=== PATIENT | male | born 1955 | race Caucasian/White ===

== ENCOUNTER → 2016-09-09 | Day surgery (SDC) | payer MEDICARE ==
--- NOTE | 2016-09-02 16:00 | HP ---
HISTORY AND PHYSICAL: DATE OF ADMISSION: 09/09/16 ADMITTING DIAGNOSES: 1. Hematuria. 2. Probable bladder tumors. PLANNED PROCEDURE: Transurethral resection of bladder tumors and possible right stent insertion. SURGEON: Dr. Goins. ADMITTING HISTORY AND PHYSICAL: Wesly Aparicio is a 60-year-old chronic smoker, who was evaluated recently for hematuria. Cystoscopy revealed a moderately enlarged prostate. There was a diverticulum noted in the bladder above the area of the right orifice with inside the diverticulum what appeared to be two superficial- appearing papillary tumors. CT scan done previously with intravenous contrast had revealed normal kidneys and he is now being brought in for transurethral resection of the bladder tumors and possible right stent insertion because of the proximity of the diverticulum to intramural portion of the right ureter. PAST MEDICAL HISTORY: Significant for: 1. Hypertension. 2. High cholesterol. 3. Depression. PAST SURGICAL HISTORY: Significant for L5-S1 hemilaminotomy done in March of 2015, bilateral total knee replacement, and left arm surgery. MEDICATIONS: On admission, include: 1. Neurontin 1800 mg a day. 2. Seroquel 400 mg a day. 3. Trazodone 200 mg a day. 4. Norvasc 10 mg a day. 5. Cozaar 25 mg a day. 6. Prilosec 40 mg a day. 7. Lipitor 60 mg a day. 8. Wellbutrin 300 mg daily. ALLERGIES: No known drug allergies. SMOKING HISTORY: He has a [id number] smoking history and is still smoking. PHYSICAL EXAMINATION GENERAL: Reveals pleasant, healthy-appearing, middle-aged gentleman. VITAL SIGNS: Blood pressure is 122/82, pulse 57 per minute, oxygen saturation 98% on room air. LUNGS: Clear bilaterally. CARDIOVASCULAR: Regular rate and rhythm. S1, S2. ABDOMEN: Soft without masses. IMPRESSION: A 60-year-old smoker with what appeared to be superficial bladder tumors. PLAN: Planned procedure is transurethral resection of bladder tumors and possible right stent insertion. CC: Dr. Dukes; Dr. Goins* [id number]/[facility] #: [id number] MTDD
[~2016-09-09] MED LIST: Buffered Lidocaine 1% SYR 3ML* 3 ML/SYR SYRINGE INTRADERM ONE; Buffered Lidocaine 1% SYR 3ML* 3 ML/SYR SYRINGE ONE; DiMENhydriNATE IV* 50 MG/ML VIAL IV PUSH PRN; Furosemide IV* 10 MG/ML 2 ML VIAL (20 MG) ONE; Iohexol 180 (CONTRAST) 10 ML SDV IV ONE; Lidocaine 2% JELLY* 6 ML JELLY TOPICAL ONE; Lidocaine 2% MPF* 2 ML VIAL ONE; Propofol* 10 MG/ML 20 ML BTL IV PUSH ONE; cefTRIAXone(*) 2 GM ADDV.VIAL IVPB ONE; fentaNYL* 50 MCG/ML 2 ML VIAL (100 MCG VIAL) IV PRN; fentaNYL* 50 MCG/ML 2 ML VIAL (100 MCG VIAL) ONE
[2016-09-09 11:53] VITALS: BP 151/84
--- NOTE | 2016-09-09 12:56 | RAD ---
INDICATION: Bladder diverticulum. Stent placement COMPARISON: CT July 17, 2016 FINDINGS: 5 seconds of fluoroscopy were provided for the urology department. Fluoroscopic spot imaging of the abdomen were obtained for operative control and show placement of a right ureteral stent in expected position . CPT II Codes: 6045F (fluoro time doc)
--- NOTE | 2016-09-09 22:06 | OP ---
DATE OF OPERATION: 09/09/16 - [facility] DATE OF : [birth year] - 60 years, male SURGEON: Kulwinder Goins MD ANESTHESIOLOGIST: Dr. Angela. ANESTHESIA: General. PRE-OP DIAGNOSIS: Bladder tumors. POST-OP DIAGNOSIS: Bladder tumors. OPERATIVE PROCEDURE: 1. Cystoscopy, excision biopsy of bladder tumors. 2. Right retrograde and right stent insertion. COMPLICATIONS: None. STENT USED: 7-Filipino stent right ureter. OPERATIVE FINDINGS: 1. [id number] enlarged prostate. 2. Diverticulum, posterior bladder wall right side with 2 small superficial- appearing tumors inside the diverticulum. POSTOPERATIVE CONDITION: Stable. INDICATIONS: Wesly Aparicio is a 60-year-old smoker, who was evaluated in the office and noted to have the above described superficial appearing bladder tumors inside a bladder diverticulum. DESCRIPTION OF PROCEDURE: After induction of general anesthesia, the patient was placed in dorsal lithotomy position. Sequential compression devices were in place and functioning. Initial cystoscopy revealed mild strictures in the urethra, mild to moderately enlarged prostate. The bladder was carefully examined. The right and left ureteral orifices were normal in position and configuration. In the posterior bladder wall just above the right orifice was a diverticulum and initially I could not visualize anything inside the diverticulum on first visualization; however, with introducing the scope into the diverticulum itself , I could then visualize two small superficial-appearing papillary tumors in the lining of the diverticulum. The remainder of the bladder was unremarkable. Because of the possibility that the intramural portion of the right ureter would be in proximity to where these lesions are, I elected to proceed with a right stent insertion. Right retrograde pyelogram revealed mild fullness of the right collecting system with no filling defects noted. A 7-Filipino stent was introduced and positioned under fluoroscopy with good proximal and distal positioning obtained. Next, using a cup biopsy forceps, excision biopsies of the bladder lesions were successfully carried out and the specimen was sent for histopathology. An electrocautery Bugbee was introduced and the area where the lesions had been and the edges of the diverticulum were carefully cauterized. At the end of the procedure, there was no remaining lesion and there was no evidence of bladder perforation. Hemostasis appeared satisfactory. A 22-Filipino Amaya was placed for temporary bladder drainage. The patient tolerated the procedure satisfactorily and was transferred back to the recovery area in stable condition. CC: Dr. Rafa Dukes * [id number]/[facility] #: [id number] [facility]
== END | disposition home or self-care (01) ==
LOC: OR 07:53
PROVIDERS: ATTEND Urology
DX: D30.3 Benign neoplasm of bladder (principal); N32.3 Diverticulum of bladder; R31.9 Hematuria, unspecified; I10 Essential (primary) hypertension; F17.210 Nicotine dependence, cigarettes, uncomplicated
CPT/HCPCS: 74420; 88305; C1876; J0696; J1940; J2704; J3010

== ENCOUNTER → 2017-03-06 12:33 | Emergency (ER) | payer MEDICARE ==
[~2017-03-06 12:33] MED LIST changes: +ALTEPLASE IV ONE; +Alteplase* 100 MG VIAL ONE; -Buffered Lidocaine 1% SYR 3ML* 3 ML/SYR SYRINGE INTRADERM ONE; -Buffered Lidocaine 1% SYR 3ML* 3 ML/SYR SYRINGE ONE; -DiMENhydriNATE IV* 50 MG/ML VIAL IV PUSH PRN; -Furosemide IV* 10 MG/ML 2 ML VIAL (20 MG) ONE; +Iodixanol 320 (CONTRAST) 100 ML SDV IV ONE; -Iohexol 180 (CONTRAST) 10 ML SDV IV ONE; -Lidocaine 2% JELLY* 6 ML JELLY TOPICAL ONE; -Lidocaine 2% MPF* 2 ML VIAL ONE; +NS 0.9% 1000 ML* 500 ML IV ONE; -Propofol* 10 MG/ML 20 ML BTL IV PUSH ONE; -cefTRIAXone(*) 2 GM ADDV.VIAL IVPB ONE; -fentaNYL* 50 MCG/ML 2 ML VIAL (100 MCG VIAL) IV PRN; -fentaNYL* 50 MCG/ML 2 ML VIAL (100 MCG VIAL) ONE
--- NOTE | 2017-03-06 12:50 | RAD ---
HISTORY: Right facial droop, right-sided weakness COMPARISONS: None TECHNIQUE: Multiple contiguous axial CT scans were obtained of the head without intravenous contrast. FINDINGS: HEMORRHAGE/INFARCT: There is no hemorrhage or acute infarct. MASSES/SHIFT: There is no mass or shift. EXTRA-AXIAL SPACES: There are no extra-axial fluid collections. SULCI AND VENTRICLES: The sulci and ventricles are normal in size and position for the patient's stated age. CEREBRUM: There are no focal parenchymal abnormalities. BRAINSTEM: There are no focal parenchymal abnormalities. CEREBELLUM: There are no focal parenchymal abnormalities. VESSELS: There is focal high attenuation of the M1 segment of the left middle cerebral artery, new from the previous examination consistent with a dense left MCA sign PARANASAL SINUSES: The paranasal sinuses are clear. ORBITS: The orbits are unremarkable. BONES AND SOFT TISSUE: No bone or soft tissue abnormalities are noted. OTHER: None IMPRESSION: DENSE LEFT MCA SIGN, CONCERNING FOR A LEFT MCA THROMBUS GIVEN THE HISTORY OF RIGHT-SIDED WEAKNESS. PRELIMINARY FINDINGS WERE DISCUSSED WITH DR. BRUNO IN THE EMERGENCY DEPARTMENT AT APPROXIMATELY 12:46 PM ON MARCH 06, 2017.
[2017-03-06 12:54] LABS: Hematocrit 41 % (42-52); Hemoglobin 13.8 g/dl (14.0-18.0); Mean Corpuscular HGB Conc 34 g/dl (31-36); Mean Corpuscular Hemoglobin 33 pg (27-31); Mean Corpuscular Volume 99 fL (80-94); Mean Platelet Volume 8 um3 (7.4-10.4); Red Blood Count 4.13 10^6/ul (4.0-5.4); Red Cell Distribution Width 14 % (10.5-15); White Blood Count 4.8 10^3/ul (3.5-10.8)
[2017-03-06 13:09] LABS: Albumin 4.3 g/dL (3.2-5.2); BUN/Creatinine Ratio 16.4 (8-20); Calcium 9.5 mg/dL (8.6-10.3); EGFR African American 81.8 (>60); EGFR Non-African American 63.6 (>60); Globulin 2.4 g/dL (2-4); HDL Cholesterol 34.7 mg/dL; Potassium 3.7 mmol/L (3.5-5.0); Total Bilirubin 0.6 mg/dL (0.2-1.0); Total Protein 6.7 g/dL (6.4-8.9)
[2017-03-06 13:11] LABS: Troponin I 0.01 ng/mL (<0.04)
--- NOTE | 2017-03-06 14:16 | RAD ---
HISTORY: Right hemiplegia, dysarthria COMPARISONS: Head CT dated March 06, 2017 TECHNIQUE: Multiple contiguous axial CT scans were obtained of the head and neck After the administration of nonionic intravenous contrast timed to the systemic arterial phase of contrast enhancement. Coronal and sagittal multiplanar reformations are submitted for review. Multiple 3-D maximum intensity projection reconstructions are also submitted for review. FINDINGS: CTA NECK: AORTIC ARCH: There is a normal three-vessel branching pattern of the aortic arch. There is no ostial or proximal stenosis of the cephalic great vessels. RIGHT VERTEBRAL ARTERY: The right vertebral artery is patent along its course, without stenosis. LEFT VERTEBRAL ARTERY: There is atherosclerosis of the origin of the left vertebral artery, with moderate ostial stenosis. DOMINANCE: The vertebral arteries are codominant. RIGHT COMMON CAROTID ARTERY: The right common carotid artery is patent. The right carotid bifurcation occurs at C3-C4 RIGHT INTERNAL CAROTID ARTERY: There is atheromatous disease of the right carotid bifurcation, without right internal carotid artery stenosis by NASCET criteria. RIGHT EXTERNAL CAROTID ARTERY: The right external carotid artery is unremarkable. LEFT COMMON CAROTID ARTERY: The left common carotid artery is patent. The left carotid bifurcation occurs at C3-C4 LEFT INTERNAL CAROTID ARTERY: The left internal carotid artery is occluded beginning at the bifurcation. This extends through the cavernous segment. LEFT EXTERNAL CAROTID ARTERY: The left external carotid artery is unremarkable. VENOUS CIRCULATION: The venous system is unremarkable. SALIVARY GLANDS: The parotid glands, submandibular glands, sublingual glands are normal. NASAL CAVITY/NASOPHARYNX: The nasal cavity and nasopharynx are normal. ORAL CAVITY/OROPHARYNX: The oral cavity and oropharynx are unremarkable. LARYNGEAL APPARATUS/HYPOPHARYNX: The laryngeal apparatus and hypopharynx are normal. UPPER AIRWAY/UPPER ESOPHAGUS: The visualized upper airway and esophagus are normal. LUNG APICES: The lung apices are clear. THYROID GLAND: The thyroid gland is normal. LYMPH NODES: There is no lymphadenopathy by size criteria. BONES AND SOFT TISSUES: Degenerative changes are noted CTA HEAD: INTRACRANIAL CIRCULATION: As noted above, there is occlusion of left internal carotid artery through the cavernous segment. There is short segment occlusion of the distal M1 segment of the left MCA correspond to the area of density noted on CT. Elsewhere, there is no aneurysm, vascular malformation, occlusion, or stenosis of the visualized intracranial situation. The anterior communicating artery complex is clear. Bilateral posterior communicating arteries are identified. VENOUS CIRCULATION: The venous system is unremarkable. PERFUSION: There is no obvious parenchymal perfusion deficit. HEMORRHAGE/INFARCT: There is no hemorrhage or acute infarct. MASSES/SHIFT: There is no mass or shift. EXTRA-AXIAL SPACES: There are no extra-axial fluid collections. SULCI AND VENTRICLES: The sulci and ventricles are normal in size and position for the patient's stated age. CEREBRUM: There are no focal parenchymal abnormalities. BRAINSTEM: There are no focal parenchymal abnormalities. CEREBELLUM: There are no focal parenchymal abnormalities. PARANASAL SINUSES: The paranasal sinuses are clear. ORBITS: The orbits are unremarkable. BONES AND SOFT TISSUE: No bone or soft tissue abnormalities are noted. OTHER: There is no abnormal enhancement. IMPRESSION: 1. THERE IS SHORT SEGMENT OCCLUSION OF THE DISTAL M1 SEGMENT OF THE LEFT MIDDLE CEREBRAL ARTERY CORRESPONDING TO THE AREA OF DENSITY NOTED ON PREVIOUS CT. 2. 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 3. 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 4. THERE IS NO RIGHT INTERNAL CAROTID ARTERY STENOSIS BY NASCET CRITERIA. PRELIMINARY FINDINGS WERE DISCUSSED WITH DR. RUBIN AT APPROXIMATELY 2:15 PM ON MARCH 06, 2017.. CPT II Codes: 3100F
--- NOTE | 2017-03-06 14:38 | RAD ---
HISTORY: Worsening left-sided weakness and aphasia COMPARISONS: Head CT dated March 06, 2017 at 12:35 PM, CT dated March 06, 2017 at 1:41 PM TECHNIQUE: Multiple contiguous axial CT scans were obtained of the head after the administration intravenous contrast as part of a CTA performed earlier the same date. FINDINGS: HEMORRHAGE/INFARCT: There is no hemorrhage or acute infarct. The presence of contrast limits the sensitivity for subarachnoid hemorrhage. MASSES/SHIFT: There is no mass or shift. EXTRA-AXIAL SPACES: There are no extra-axial fluid collections. SULCI AND VENTRICLES: The sulci and ventricles are normal in size and position for the patient's stated age. CEREBRUM: There are no focal parenchymal abnormalities. BRAINSTEM: There are no focal parenchymal abnormalities. CEREBELLUM: There are no focal parenchymal abnormalities. VESSELS: The dense left MCA is not well visualized on this postcontrast examination. PARANASAL SINUSES: The paranasal sinuses are clear. ORBITS: The orbits are unremarkable. BONES AND SOFT TISSUE: No bone or soft tissue abnormalities are noted. OTHER: None IMPRESSION: NO ACUTE INTRACRANIAL PATHOLOGY. THE PRESENCE OF INTRAVENOUS CONTRAST LIMITS THE SENSITIVITY FOR SUBARACHNOID HEMORRHAGE AND OBSCURES THE DENSE LEFT MCA NOTED ON THE PREVIOUS CT EXAMINATION
--- NOTE | 2017-03-06 14:39 | RAD ---
HISTORY: Stroke COMPARISONS: October 13, 2015 VIEWS:1: Single frontal portable view of the chest at 1:55 PM FINDINGS: LINES AND TUBES: None. CARDIOMEDIASTINAL SILHOUETTE: The cardiomediastinal silhouette is normal for portable technique. PLEURA: The costophrenic angles are sharp. There is stable mild right apical pleural thickening. LUNG PARENCHYMA: The lungs are clear. ABDOMEN: The upper abdomen is clear. There is no subphrenic gas. BONES AND SOFT TISSUES: No bone or soft tissue abnormalities are noted. IMPRESSION: NO ACTIVE CARDIOPULMONARY DISEASE.
--- NOTE | 2017-03-06 15:05 | ED ---
Iván Davila Thomas, scribed for Cliff Mitchell MD on 03/06/17 at 1239 . Neurological HPI - HPI Summary HPI Summary: Pt is a 61 y/o M BIBA. Pt was immediately sent to CT, where he was seen initially. Time of onset was about 11:50 when he was driving in the car around [employer]. His noticed slurred speech. Pt is "stumbling a little bit" when speaking, has R-sided facial droop, and unequal erp implementation consultant strengths. Denies tingling , numbness, DENISE. PMHx: HTN, HLD, ulcers. PSHx: bladder tumor (benign) excision 6 months ago. No documented PMHx of aneurysms. SHx: heavy alcohol use for the last 2 years. Ghassan Flanagan was called SHEARER SCREEN MEASURER AND TRIMMER at 12:23. The patient was aware of his name, the date, and where he was. The pt is talking about his brother as if he is still alive. Per his family, there is no chance he is intoxicated. - History of Current Complaint Stated Complaint: POSSIBLE GHASSAN LANGFORD Hx Obtained From: Patient, EMS Onset/Duration: Sudden Onset, Started hours ago - 1 hour, Still Present Character: Impaired Speech - slurred, Other: - POS: "stumbling a little bit when speaking", R-sided facial droop, unequal erp implementation consultant strengths. NEG: parasthesias. - Additional Pertinent History Primary Care Physician: [id number] - Allergy/Home Medications Allergies/Adverse Reactions: Allergies Allergy/AdvReac Type Severity Reaction Status Date / Time No Known Drug Allergy Allergy See Comment Verified 09/09/16 08:40 STEROID AdvReac RAN TO Uncoded 09/09/16 08:40 BAR, DRINKING ALCOHOL PMH/Surg Hx/FS Hx/Imm Hx Previously Healthy: No Endocrine/Hematology History: Denies: Hx Anticoagulant Therapy, Hx Diabetes, Hx Thyroid Disease Cardiovascular History: Reports: Hx Coronary Artery Disease - CHOLESTEROL CONTROL WITH MEDS, Hx Hypertension - ON MEDICATION, Other Cardiovascular Problems/Disorders - CHOLESTEROL CONTROL WITH MEDICATIONS Denies: Hx Pacemaker/ICD, Hx Peripheral Vascular Disease Respiratory History: Reports: Hx Pneumonia - 20+ years ago, Other Respiratory Problems/Disorders - HX OF COLLAPSE RT LUNG DUE TO RUPTURED CYST 1979/WITH LOBECTOMY Denies: Hx Asthma, Hx Chronic Obstructive Pulmonary Disease (COPD) GI History: Reports: Hx Gastroesophageal Reflux Disease, Hx Ulcer - Hx OF GASTRIC ULCER, BLEEDING History: Denies: Hx Dialysis, Hx Renal Disease Musculoskeletal History: Reports: Hx Arthritis, Hx Bursitis, Other Musculoskeletal History - HX LEFT KNEE REPLACEMENT , LT ULNAR NERVE REPAIR. DEFORMITY TO LT HAND Sensory History: Reports: Hx Cataracts, Hx Contacts or Glasses Denies: Hx Hearing Aid Opthamlomology History: Reports: Hx Cataracts, Hx Contacts or Glasses Neurological History: Reports: Hx Nerve Disease - LEFT HAND, Other Neuro Impairments/Disorders - OVER DOSE IS IN COMA Denies: Hx Dementia, Hx Headaches, Hx Seizures Psychiatric History: Reports: Hx Anxiety - on meds, Hx Depression, Hx Community Mental Health Tx, Hx Suicide Attempt - [facility] ABOUT 10 YEARS AGO. CURRENT W SEREQUEL AND NORVASC, Hx Substance Abuse, Other Psychiatric Issues/Disorders - HAS HAD FAMILY MEMBERS AND ANNERVERSARY DATES/AGE CLOSE TO THIS ATTEMPT Denies: Hx Panic Disorder, Hx of Violent Episodes Against Others - Surgical History Surgery Procedure, Year, and Place: 2009 BILATERAL INGUINAL HERNIA REPAIR, [id number] LEFT KNEE REPLACEMENT, [id number] RIGHT UPPER LUNG () LOBECTOMY, [id number] LEFT DETACHED RETINA REPAIR { no metal -report in pt's chart}, [id number] [place]AR[place] [facility] [place] DR DE JESUS [place]. [place] [facility] [place]EE [place]PLAC[place] -2013. diskectomy on lower back 04/2015 Hx Anesthesia Reactions: No - Immunization History Date of Tetanus Vaccine: UNKNOWN Date of Influenza Vaccine: this year Infectious Disease History: Denies: Hx Clostridium Difficile, Hx Hepatitis, Hx Human Immunodeficiency Virus (HIV) - Family History Known Family History: Positive: Other - POS: alcoholism, mental health, drug use - Social History Alcohol Amount: RECOVERING ALCOHOLIC Substance Use Type: Reports: None Smoking Status (MU): Heavy Every Day Tobacco Smoker Type: Cigarettes Amount Used/How Often: 1 PPD Length of Time of Smoking/Using Tobacco: 30 YEARS Have You Smoked in the Last Year: Yes Review of Systems Constitutional: Negative Negative: Fever, Chills Eyes: Negative Negative: Erythema - eye ENT: Negative Negative: Sore Throat Cardiovascular: Negative Negative: Chest Pain Respiratory: Negative Negative: Shortness Of Breath, Cough Gastrointestinal: Negative Negative: Abdominal Pain, Vomiting, Nausea Genitourinary: Negative Negative: dysuria, hematuria Musculoskeletal: Negative Negative: Myalgia, Edema - leg Skin: Negative Negative: Rash Neurological: Other - POS: R-sided facial droop, unequal erp implementation consultant strengths ( resolved in the ED), aphasia (resolved in the ED);NEG: dizziness Positive: Slurred Speech - onset 11:50. Negative: Headache, Paresthesia Psychological: Normal All Other Systems Reviewed And Are Negative: Yes Physical Exam - Summary Physical Exam Summary: Constitutional: Well-developed, Well-nourished, Alert. (-) Distressed Skin: Warm, Dry HENT: Eyes: Conjunctiva normal Neck: Musculoskeletal ROM normal neck. (-) JVD, (-) Stridor, (-) Tracheal deviation Cardio: Rhythm regular, rate normal, Heart sounds normal; Intact distal pulses; The pedal pulses are 2+ and symmetric. Radial pulses are 2+ and symmetric. (-) Murmur Pulmonary/Chest wall: Effort normal. (-) Respiratory distress, (-) Wheezes, (-) Rales Abd: Soft. (-) Tenderness, ~(-) Distension, (-) Guarding, (-) Rebound Musculoskeletal: (-) Edema Lymph: (-) Cervical adenopathy Neuro: Alert, Oriented x3, Unequal erp implementation consultant strengths (weak on right, weaker than baseline). Slurred speech. Cranial nerves intact with exception of R facial droop (-) Dysmetria, (-) Nystagmus, (-) Ataxia by finger to nose testing, (-) Sensory deficit. Psych: Mood and affect Normal Triage Information Reviewed: Yes Vital Signs On Initial Exam: Initial Vitals BP 150/82 03/06/17 12:46 Vital Signs Reviewed: Yes Diagnostics - Vital Signs Vital Signs Pulse Resp BP Pulse Ox 03/06/17 14:30 145/79 03/06/17 14:24 60 12 91 03/06/17 14:15 61 12 147/81 91 03/06/17 14:00 58 14 158/83 95 03/06/17 13:52 145/99 03/06/17 13:37 58 17 94 03/06/17 13:34 132/79 03/06/17 13:30 58 17 134/86 94 03/06/17 13:14 65 12 150/78 95 03/06/17 13:00 61 18 135/78 93 03/06/17 12:47 63 15 93 03/06/17 12:46 150/82 - Laboratory Lab Results: Lab Results 03/06/17 03/06/17 03/06/17 Range/Units 12:45 12:45 12:45 WBC 4.8 (3.5-10.8) 10^3/ul RBC 4.13 (4.0-5.4) 10^6/ul Hgb 13.8 L (14.0-18.0) g/dl Hct 41 L (42-52) % MCV 99 H (80-94) fL MCH 33 H (27-31) pg MCHC 34 (31-36) g/dl RDW 14 (10.5-15) % Plt Count 187 (150-450) 10^3/ul MPV 8 (7.4-10.4) um3 Neut % (Auto) 59.8 (38-83) % Lymph % (Auto) 31.5 (25-47) % [place] % (Auto) 6.4 (1-9) % Eos % (Auto) 1.6 (0-6) % Baso % (Auto) 0.7 (0-2) % Absolute Neuts (auto) 2.8 (1.5-7.7) 10^3/ul Absolute Lymphs (auto) 1.5 (1.0-4.8) 10^3/ul Absolute Monos (auto) 0.3 (0-0.8) 10^3/ul Absolute Eos (auto) 0.1 (0-0.6) 10^3/ul Absolute Basos (auto) 0 (0-0.2) 10^3/ul Absolute Nucleated RBC 0 10^3/ul Nucleated RBC % 0.1 INR (Anticoag Therapy) 0.88 L (0.89-1.11) APTT 29.8 (26.0-36.3) seconds Sodium 138 (133-145) mmol/L Potassium 3.7 (3.5-5.0) mmol/L Chloride 106 (101-111) mmol/L Carbon Dioxide 25 (22-32) mmol/L Anion Gap 7 (2-11) mmol/L BUN 19 (6-24) mg/dL Creatinine 1.16 (0.67-1.17) mg/dL Est GFR ( Amer) 81.8 (>60) Est GFR (Non-Af Amer) 63.6 (>60) BUN/Creatinine Ratio 16.4 (8-20) Glucose 88 (70-100) mg/dL Lactic Acid (0.5-2.0) mmol/L Calcium 9.5 (8.6-10.3) mg/dL Total Bilirubin 0.60 (0.2-1.0) mg/dL AST 26 (13-39) U/L ALT 31 (7-52) U/L Alkaline Phosphatase 98 (34-104) U/L Troponin I 0.01 (<0.04) ng/mL Total Protein 6.7 (6.4-8.9) g/dL Albumin 4.3 (3.2-5.2) g/dL Globulin 2.4 (2-4) g/dL Albumin/Globulin Ratio 1.8 (1-3) Triglycerides 241 mg/dL Cholesterol 181 mg/dL LDL Cholesterol 98 mg/dL HDL Cholesterol 34.7 mg/dL Blood Type Antibody Screen 03/06/17 03/06/17 Range/Units 12:45 12:45 WBC (3.5-10.8) 10^3/ul RBC (4.0-5.4) 10^6/ul Hgb (14.0-18.0) g/dl Hct (42-52) % MCV (80-94) fL MCH (27-31) pg MCHC (31-36) g/dl RDW (10.5-15) % Plt Count (150-450) 10^3/ul MPV (7.4-10.4) um3 Neut % (Auto) (38-83) % Lymph % (Auto) (25-47) % [place] % (Auto) (1-9) % Eos % (Auto) (0-6) % Baso % (Auto) (0-2) % Absolute Neuts (auto) (1.5-7.7) 10^3/ul Absolute Lymphs (auto) (1.0-4.8) 10^3/ul Absolute Monos (auto) (0-0.8) 10^3/ul Absolute Eos (auto) (0-0.6) 10^3/ul Absolute Basos (auto) (0-0.2) 10^3/ul Absolute Nucleated RBC 10^3/ul Nucleated RBC % INR (Anticoag Therapy) (0.89-1.11) APTT (26.0-36.3) seconds Sodium (133-145) mmol/L Potassium (3.5-5.0) mmol/L Chloride (101-111) mmol/L Carbon Dioxide (22-32) mmol/L Anion Gap (2-11) mmol/L BUN (6-24) mg/dL Creatinine (0.67-1.17) mg/dL Est GFR ( Amer) (>60) Est GFR (Non-Af Amer) (>60) BUN/Creatinine Ratio (8-20) Glucose (70-100) mg/dL Lactic Acid 1.2 (0.5-2.0) mmol/L Calcium (8.6-10.3) mg/dL Total Bilirubin (0.2-1.0) mg/dL AST (13-39) U/L ALT (7-52) U/L Alkaline Phosphatase (34-104) U/L Troponin I (<0.04) ng/mL Total Protein (6.4-8.9) g/dL Albumin (3.2-5.2) g/dL Globulin (2-4) g/dL Albumin/Globulin Ratio (1-3) Triglycerides mg/dL Cholesterol mg/dL LDL Cholesterol mg/dL HDL Cholesterol mg/dL Blood Type O Positive Antibody Screen Negative Result Diagrams: 03/06/17 12:45 03/06/17 12:45 Lab Statement: Any lab studies that have been ordered have been reviewed, and results considered in the medical decision making process. - Radiology CXR Xray Interpretation: No Acute Changes - No active cardiopulmonary disease Radiology Interpretation Completed By: Radiologist - CT CTA Head CT Interpretation: Positive (See Comments) - 1. THERE IS SHORT SEGMENT OCCLUSION OF THE DISTAL M1 SEGMENT OF THE LEFT MIDDLE CEREBRAL ARTERY CORRESPONDING TO THE AREA OF DENSITY NOTED ON PREVIOUS CT. 2. 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 3. 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 4. THERE IS NO RIGHT INTERNAL CAROTID ARTERY STENOSIS BY NASCET CRITERIA. CT Interpretation Completed By: Radiologist CT Brain 12:30 CT Interpretation: Positive (See Comments) - DENSE LEFT MCA SIGN, CONCERNING FOR A LEFT MCA THROMBUS GIVEN THE HISTORY OF RIGHT-SIDED WEAKNESS. PRELIMINARY FINDINGS WERE DISCUSSED WITH DR. MITCHELL IN THE EMERGENCY DEPARTMENT CT Interpretation Completed By: Radiologist CT Brain 14:20 CT Interpretation: No Acute Changes - RADIOLOGIST INTERPRETATION: NO ACUTE INTRACRANIAL PATHOLOGY. THE PRESENCE OF INTRAVENOUS CONTRAST LIMITS THE SENSITIVITY FOR SUBARACHNOID HEMORRHAGE AND OBSCURES THE DENSE LEFT MCA NOTED ON THE PREVIOUS CT EXAMINATION, Positive (See Comments) - ED PHYSICIAN INTERPRETATION: A wet read of this CT indicates subarachnoid hemorrhage. CT Interpretation Completed By: ED Physician, Radiologist - EKG 13:27 Cardiac Rate: Bradycardia - 58 BPM EKG Interpretation: Sinus bradycardia. No STEMI. 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 Non-Paretic Hand: Both Correctly Best Gaze (Only Horizontal Eye Movement): Normal Visual Field Testing: No Visual Loss Facial Paresis-Pt to Smile & Close Eyes or Grimace Symmetry: Minor Paralysis Motor Function - Right Arm: No Drift-Holds 10 Seconds Motor Function - Left Arm: No Drift-Holds 10 Seconds Motor Function - Right Leg: No Drift-Holds 10 Seconds Motor Function - Left Leg: No Drift-Holds 10 Seconds Limb Ataxia-Must be out of Proportion to Weakness Present: Absent Sensory (Use Pinprick to Test Arms/Legs/Trunk/Face): Normal Best Language (Describe Picture, Name Items): Some Loss Dysarthria (Read Several Words): Slurs Some Words Extinction and Inattention: No Abnormality Total Score: 3 Re-Evaluation - Re-Evaluation First Eval Re-Evaluation Time: 13:05 Change: Improved Comment: New information was obtained. The pt pulled the car over because he could not move his R arm, which has since improved. His gameplay engineer are now equal. There is still facial droop on the R side and dysarthric speech. The aphasia has resolved. Dr. Zamudio is at the bedside. Second Eval Re-Evaluation Time: 14:21 Change: Worse - There has been an acute change. The pt now is hemiplegic to the R side and is speech is more slurred. Third Eval Re-Evaluation Time: 14:50 Change: Improved - Now moving upper extremities better. Fourth Eval Re-Evaluation Time: 14:57 Change: Improved - Some hemineglect on the R side, now resolved. Gag reflex is delayed but present. Awake and asking question. Course/Dx - Course Assessment/Plan: Pt is a 61 y/o M BIBA. Pt was immediately sent to CT, where he was seen initially. Time of onset was about 11:50 when he was driving in the car around [address]. His noticed slurred speech. Pt is "stumbling a little bit" when speaking, has R-sided facial droop, and unequal erp implementation consultant strengths. Denies tingling, numbness, DENISE. PMHx: HTN, HLD, ulcers. PSHx: bladder tumor ( benign) excision 6 months ago. No documented PMHx of aneurysms. SHx: heavy alcohol use for the last 2 years. Ghassan Flanagan was called SHEARER SCREEN MEASURER AND TRIMMER at 12:23. The patient was aware of his name, the date, and where he was. The pt is talking about his brother as if he is still alive. Per his family, there is no chance he is intoxicated. CXR revealed no active cardiopulmonary disease. A CTA Head revealed 1. THERE IS SHORT SEGMENT OCCLUSION OF THE DISTAL M1 SEGMENT OF THE LEFT MIDDLE CEREBRAL ARTERY CORRESPONDING TO THE AREA OF DENSITY NOTED ON PREVIOUS CT. 2. 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 3. 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 4. THERE IS NO RIGHT INTERNAL CAROTID ARTERY STENOSIS BY NASCET CRITERIA. CT Brain 12:30 revealed DENSE LEFT MCA SIGN, CONCERNING FOR A LEFT MCA THROMBUS GIVEN THE HISTORY OF RIGHT-SIDED WEAKNESS. PRELIMINARY FINDINGS WERE DISCUSSED WITH DR. MITCHELL IN THE EMERGENCY DEPARTMENT. CT Brain 14:20 revealed NO ACUTE INTRACRANIAL PATHOLOGY. THE PRESENCE OF INTRAVENOUS CONTRAST LIMITS THE SENSITIVITY FOR SUBARACHNOID HEMORRHAGE AND OBSCURES THE DENSE LEFT MCA NOTED ON THE PREVIOUS CT EXAMINATION (radiologist interpretation). EM Physician interpretation A wet read of this CT indicates subarachnoid hemorrhage. EKG revealed Bradycardia - 58 BPM, Sinus bradycardia. No STEMI. Bloodwork shows Hgb 13.8, Hct 41, MCV 99, MCH 33, INR 0.88. Dr. hTomas Zamudio, who discussed patient. Pt is a TPA candidate. Dr. Zamudio is coming to evaluate. Also discussed with Dr. Castro, radiology, about CT scans. Pt will be transferred to higher level of care at [facility]. - Diagnoses Provider Diagnoses: Occlusion of left internal carotid artery, Acute CVA (cerebrovascular accident) , Occlusion of middle cerebral artery - Physician Notifications Discussed Care Of Patient With: Thomas Zamudio Time Discussed With Above Provider: 12:50 Instructed by Provider To: Other - Discussed patient. Pt is a TPA candidate. Dr. Zamudio is coming to evaluate. Also discussed with Dr. Castro, radiology, about CT scans. - Critical Care Time Critical Care Time: 30-74 min - 60 minutes Discharge - Discharge Plan Condition: Fair Disposition: TRANS HIGHER LVL OF CARE FAC The documentation as recorded by the Iván ferrera Thomas accurately reflects the service I personally performed and the decisions made by me, Cliff Mitchell MD.
[2017-03-06 15:48] VITALS: BP 152/105
--- NOTE | 2017-03-06 21:38 | CONS ---
CONSULTATION REPORT: DATE OF CONSULT/DICTATION: 03/06/17 - EMERGENCY DEPT PATIENT OF: Dr. Mitchell. HISTORY OF PRESENT ILLNESS: This is a 61-year-old right-handed man who has had no prior stroke and was in his usual state of health up until about 11:15 today when he was driving with his girlfriend. Girlfriend noted that he became aphasic and had a right hemiparesis. The aphasia was apparently quite pronounced and he was brought to the emergency room here and arrived shortly after 12:30. He was significantly better at that point and went to CT scan with a negative CT scan other than a left MCA sign on the scan. I was called after the CT scan and evaluated him within 15 minutes of that. He had, at that point, NIH stroke scale of 6 with some mild weakness and language dysfunction. He received TPA beginning within 15 minutes of my evaluation and it had been requested while I was on my way to the hospital and the CTA scan was obtained at roughly 2:15. At the same time, we were evaluating and speaking to Dr. Christy about the CTA. He had an acute decompensation where he could say his name with difficulty, but had no other speech. He had a left gaze preference at that time and had minimal strength on the right. I called [facility] once I spoke to Dr. Christy which was as he was decompensating and I sent him back for a repeat CT scan. He has had no prior strokes. His risk factors for stroke include hyperlipidemia , hypertension, and he is a former smoker quitting 2 months ago. He has had no clear alcohol or drug history. PAST MEDICAL HISTORY: He has a former GI bleed, but this was more than 30 years ago. PAST SURGICAL HISTORY: He had a surgery in August for a benign gallbladder tumor. MEDICINES AT HOME: Include and these are not confirmed at this point, but he is on no platelet medicine, no anticoagulant medicine. He is on melatonin at bedtime. The other medicines are confirmed by his daughter which are: 1. Norvasc 10 mg a day. 2. Lipitor 60 mg a day. 3. Wellbutrin 300 mg a day. 4. Neurontin 900 b.i.d. 5. Prilosec 20 mg q.a.m. 6. He is no longer on the prednisone. 7. He is on Seroquel 400 mg at bedtime. ALLERGIES: He has no known allergies. FAMILY HISTORY: His mother had several small strokes. REVIEW OF SYSTEMS: He has been in general good recent health. When he was awake and fully talkative, he had a negative review of systems. PHYSICAL EXAM: Blood pressure 145/79, pulse 61, respirations 21. His exam has fluctuated dramatically as described above ranging from initial NIH stroke scale of 6 up to 21. Currently, he is awake. He has full range of extraocular movements. Pupils were equal, round and reactive to light. When he got drowsy, when he was having signs of a larger stroke, he had a pupillary asymmetry with both reactive but his right pupil was 2.5, left was 1.[address]. He has a mild right facial. He has mild aphasia now, but was able to speak in short sentences. Strength on the right side was 5-/5, on the left was 5/5. Sensation intact to light touch. Reflexes were 2 and equal. Toes were downgoing at this point. Chest clear. Cardiovascular: Regular rate and rhythm. Abdomen: Soft with positive bowel sounds. DIAGNOSTIC STUDIES/LAB DATA: His CTA showed and included left M1 segment of his left middle cerebral artery with occlusion of his left internal carotid and with moderate ostial stenosis of left vertebral artery. His repeat CT scan done when he decompensated did not show any new findings. There was some brightness along his falx which he did not think was a subarachnoid hemorrhage, but could not completely exclude and he thought it was unlikely. IMPRESSION: The TPA was held during the decompensation, spoken to Dr. Hinds again and he concurred to not complete the very last bit of TPA and just have the patient transferred to [facility]. I discussed with the patient and his family in detailed multiple points that he was in the process of having a left MCA stroke with fluctuation. We gave him fluids initially and he has had good urine output and we have lowered his head of the bed which may have helped. In any event, he has symptoms of left MCA stroke which are fluctuating greatly and at its most severe appears to be capable of complete MCA occlusion. He is status post TPA and he will be transferred to [facility] for possible further intervention. I discussed with family that he is well within the time frame that they could intervene if necessary and part of it will depend on his clinical status when he is there and how accessible his lesions are. Thank you for sharing his case. Of note, more than 2 hours of time has been spent in critical care dealing with this patient. [id number]/[facility] #: [id number] RENETTA
== END | disposition short-term general hospital (02) ==
LOC: ED 12:33
DX: I65.22 Occlusion and stenosis of left carotid artery (principal); I63.9 Cerebral infarction, unspecified; I66.9 Occlusion and stenosis of unspecified cerebral artery; R47.81 Slurred speech
CPT/HCPCS: 36415; 70450; 70496; 70498; 71010; 80053; 80061; 83605; 84484; 85025; 85610; 85730; 86850; 86900; 86901; 93005; 99283; J2997; Q9967

== ENCOUNTER 2017-05-12 09:03 | Day surgery (SDC) | payer MEDICARE ==
[~2017-05-12 09:03] MED LIST changes: -ALTEPLASE IV ONE; +Acetaminophen TAB* 325 MG PO PRN; -Alteplase* 100 MG VIAL ONE; +Buffered Lidocaine 0.9% SYRIN* 5 ML/SYR SYRINGE INTRADERM ONE; -Iodixanol 320 (CONTRAST) 100 ML SDV IV ONE; -NS 0.9% 1000 ML* 500 ML IV ONE
[2017-05-12] MEDS ORDERED: Midazolam* 1 MG/ML 2 ML VIAL (2 MG) ONE (10:18)
[2017-05-12] MEDS ORDERED: Proparacaine 0.5% OPHTH.SOL* 15 ML BTL ONE (10:44)
[2017-05-12] MEDS ORDERED: Lidocaine 2% EPI 1:200000 MPF* 20 ML VIAL ONE (10:44)
[2017-05-12] MEDS ORDERED: Povidone Iodine 5% OPTH* 30 ML BTL ONE (10:44)
[2017-05-12] MEDS ORDERED: Lidocaine 1% MPF* 2 ML VIAL ONE (10:44)
[2017-05-12] MEDS ORDERED: acetaZOLAMIDE TAB* 250 MG ONE (10:44)
[2017-05-12] MEDS ORDERED: Buffered Lidocaine 0.9% SYRIN* 5 ML/SYR SYRINGE ONE (10:44)
[2017-05-12] MEDS ORDERED: Cyclopentolate 1% OPTH.SOL* 2 ML BTL ONE (10:44)
[2017-05-12] MEDS ORDERED: Neomycin/Polymy/Dex OPTH.SUSP* MAXITROL 0.1% 5 ML ONE (10:44)
[2017-05-12] MEDS ORDERED: Phenylephrine 2.5% OPTH.SOL* 2 ML BTL ONE (10:44)
[2017-05-12] MEDS ORDERED: Flurbiprofen 0.03% OPTH.SOL* 2.5 ML BTL ONE (10:44)
[2017-05-12 11:17] VITALS: BP 102/72
--- NOTE | 2017-05-13 01:26 | OP ---
DATE OF OPERATION: 05/12/17 - [facility] DATE OF : 51 SURGEON: Rafa Sherman M.D. PREOPERATIVE DIAGNOSIS: Cataract, right eye. POSTOPERATIVE DIAGNOSIS: Cataract, right eye. OPERATIVE PROCEDURE: Phacoemulsification, right eye, with IOL. DESCRIPTION OF PROCEDURE: The patient was brought to the operating room after being given 1/2% Alcaine with epinephrine drops in the preoperative area. The eye was prepped and draped in the usual sterile fashion. Sterile drape and eyelid speculum were placed. Again, topical 1/2% Alcaine with epinephrine was given. A paracentesis incision was made at the 9 o'clock position with the No.75 blade. Clear cornea incision 2.2 x 2.2-mm was created at the 12 o'clock position starting at the anterior limbus using the 2.2-mm keratome. The anterior chamber was irrigated with 0.4 mL of 1% non-preservative intracameral lidocaine and filled with DisCoVisc. A capsulorrhexis was completed using the cystotome and the Utrata forceps. Hydrodissection was performed with balanced salt solution. The lens nucleus was removed with the Phacoemulsification handpiece without incident. Cortex was removed with the irrigation-aspiration handpiece. The capsular bag was re-inflated using DisCoVisc and an [id number] implant was inserted with the shooter. The irrigation-aspiration handpiece was used to remove all residual DisCoVisc. The eye was refilled with balanced salt solution and the wound checked and found to be watertight. Topical Maxitrol drops were given. [id number]/[facility] #: [id number] MTDD
== END 2017-05-12 11:30 | disposition home or self-care (01) ==
LOC: OREAST 09:03
PROVIDERS: ATTEND Specialist
PROC: 08RJ3JZ Replacement of Right Lens with Synthetic Substitute, Percutaneous Approach (ICD-10-PCS; principal; 2017-05-12 11:00)
DX: H25.11 Age-related nuclear cataract, right eye (principal); F17.210 Nicotine dependence, cigarettes, uncomplicated
CPT/HCPCS: A9270-GY; J2250; V2632

== ENCOUNTER 2017-05-23 11:38 | Emergency (ER) | payer MEDICARE ==
--- NOTE | 2017-05-23 12:45 | RAD ---
Indication: Cough. 2 views of the chest including dual energy PA views demonstrates no mediastinal shift. Hyperinflated lung vidales are noted. No alveolar consolidation is noted. No pleural fluid, pneumonia or pneumothorax is noted. When compared to previous exam of March 06, 2017 no significant change is noted. IMPRESSION: Hyperinflated lung vidales without evidence of active cardiopulmonary disease.
[2017-05-23] MEDS ORDERED: Albuterol HFA INHALER* 8 gm MDI INH ONE (12:59)
[2017-05-23] MEDS ORDERED: Clarithromycin TAB* 500 MG PO ONE (13:06)
[2017-05-23] MEDS ORDERED: guaiFENesin/CODIEN 100MG-10MG* 5 ML UDC PO ONE (13:08)
[2017-05-23 13:22] VITALS: BP 107/81
--- NOTE | 2017-05-23 14:32 | ED ---
Kelsey Davila Edward, scribed for Vimal Espinoza MD on 05/23/17 at 1147 . Respiratory - HPI Summary HPI Summary: 61 y/o male presents to the ED c/o a gradual onset, intermittent cough lasting a week. The cough is nonproductive. Associated sx: CP related to cough. PMHx CVA. Former smoker (quit 2 months ago). The patient first developed a cough right after he quit smoking but it resolved. This cough has come back after the patient [place]" per the patient's . - History of Current Complaint Chief Complaint: EDUpperRespComplaint Stated Complaint: COUGH Time Seen by Provider: 05/23/17 11:45 Hx Obtained From: Patient Onset/Duration: Lasting Weeks Pain Intensity: 8 Character: Cough (Nonproductive) Sputum Amount: None Associated Signs and Symptoms: Chest Pain with Cough - Allergy/Home Medications Allergies/Adverse Reactions: Allergies Allergy/AdvReac Type Severity Reaction Status Date / Time STEROID AdvReac See Comment Uncoded 05/12/17 09:22 PMH/Surg Hx/FS Hx/Imm Hx Previously Healthy: No Endocrine/Hematology History: Denies: Hx Anticoagulant Therapy, Hx Diabetes, Hx Thyroid Disease Cardiovascular History: Reports: Hx Coronary Artery Disease - CHOLESTEROL CONTROL WITH MEDS, Hx Hypertension - ON MEDICATION, Other Cardiovascular Problems/Disorders - CHOLESTEROL CONTROL WITH MEDICATIONS Denies: Hx Pacemaker/ICD, Hx Peripheral Vascular Disease Respiratory History: Reports: Hx Pneumonia - 20+ years ago, Other Respiratory Problems/Disorders - HX OF COLLAPSE RT LUNG DUE TO RUPTURED CYST 1979/WITH LOBECTOMY Denies: Hx Asthma, Hx Chronic Obstructive Pulmonary Disease (COPD) GI History: Reports: Hx Gastroesophageal Reflux Disease, Hx Ulcer - Hx OF GASTRIC ULCER, BLEEDING History: Denies: Hx Dialysis, Hx Renal Disease Musculoskeletal History: Reports: Hx Arthritis - shoulders,back, knees, Hx Bursitis - shoulders, Other Musculoskeletal History - rina kneeREPLACEMENT , LT ULNAR NERVE REPAIR. DEFORMITY TO LT HAND Sensory History: Reports: Hx Cataracts - rina, Hx Contacts or Glasses - glasses Denies: Hx Hearing Aid Opthamlomology History: Reports: Hx Cataracts - rina, Hx Contacts or Glasses - glasses Neurological History: Reports: Hx Nerve Disease - LEFT HAND, Other Neuro Impairments/Disorders Denies: Hx Dementia, Hx Headaches, Hx Seizures Psychiatric History: Reports: Hx Anxiety - on meds, Hx Depression - on meds, Hx Community Mental Health Tx, Hx Suicide Attempt - REMERON ABOUT 10 YEARS AGO. CURRENT W SEREQUEL AND NORVASC, Hx Substance Abuse, Other Psychiatric Issues/ Disorders - HAS HAD FAMILY MEMBERS AND ANNERVERSARY DATES/AGE CLOSE TO THIS ATTEMPT Denies: Hx Panic Disorder, Hx of Violent Episodes Against Others - Surgical History Surgery Procedure, Year, and Place: 2009 BILATERAL [place]GUINAL [place] [facility] [place] [facility] [place] RIGHT UPPER LUNG () LOBECTOMY, [place]. 2011 LEFT DETACHED RETINA REPAIR { no metal -report in pt's chart }, [place]. 2011 LEFT CATARACT EXTRACTION WITH IOL IMPLANT, [facility] [place] W/ DR DE JESUS. LEFT ULNAR REPAIR, [facility] [place]. Rt KNEE REPLACEMENT -2013. diskectomy on lower back 04/2015 Hx Anesthesia Reactions: No - Immunization History Date of Tetanus Vaccine: UNKNOWN Date of Influenza Vaccine: this year Infectious Disease History: No Infectious Disease History: Denies: Hx Clostridium Difficile, Hx Hepatitis, Hx Human Immunodeficiency Virus (HIV), Traveled Outside the [place] in Last 30 Days - Family History Known Family History: Positive: Other - POS: alcoholism, mental health, drug use - Social History Alcohol Use: None Alcohol Amount: RECOVERING ALCOHOLIC Hx Substance Use: No Substance Use Type: Reports: None Hx Tobacco Use: Yes Smoking Status (MU): Heavy Every Day Tobacco Smoker Type: Cigarettes Amount Used/How Often: 1 PPD for 50 Length of Time of Smoking/Using Tobacco: 30 YEARS Have You Smoked in the Last Year: Yes Review of Systems Constitutional: Negative Eyes: Negative ENT: Negative Positive: Chest Pain - w/ cough Positive: Cough Gastrointestinal: Negative Genitourinary: Negative Musculoskeletal: Negative Skin: Negative Neurological: Negative Psychological: Normal All Other Systems Reviewed And Are Negative: Yes Physical Exam Triage Information Reviewed: Yes Vital Signs On Initial Exam: Initial Vitals Temp Pulse Resp BP Pulse Ox 98.2 F 81 18 130/83 96 05/23/17 11:40 05/23/17 11:40 05/23/17 11:40 05/23/17 11:40 05/23/17 11:40 Vital Signs Reviewed: Yes Appearance: Positive: Well-Appearing, No Pain Distress Skin: Positive: Warm, Skin Color Reflects Adequate Perfusion, Dry Head/Face: Positive: Normal Head/Face Inspection Eyes: Positive: Normal ENT: Positive: Normal ENT inspection Neck: Positive: Supple, Nontender Respiratory/Lung Sounds: Positive: Breath Sounds Present, Wheezes - Sparse wheezes, Other - Upper respiratory sounds Cardiovascular: Positive: RRR Abdomen Description: Positive: Nontender, Soft Bowel Sounds: Positive: Present Musculoskeletal: Positive: Normal Neurological: Positive: Normal Psychiatric: Positive: Normal Diagnostics - Vital Signs Vital Signs Temp Pulse Resp BP Pulse Ox 05/23/17 11:40 98.2 F 81 18 130/83 96 - Laboratory Lab Statement: Any lab studies that have been ordered have been reviewed, and results considered in the medical decision making process. - Radiology CXR Xray Interpretation: No Acute Changes - Hyperinflated lung vidales without evidence of active cardiopulmonary disease. ED physician agrees Radiology Interpretation Completed By: Radiologist Re-Evaluation - Re-Evaluation 1 Re-Evaluation Time: 12:55 Comment: Discuss XR results Disposition - Course Course Of Treatment: Mr. Aparicio is a long time smoker who quit a couple months ago after having a stroke. He has been coughing a lot the last couple of weeks and having chest pain with the coughing but not bringing anything up. His CXR here is clear and he has upper airway sounds to auscultation with sparse wheezing. I think he has a bronchitis and I still consider him to be a smoker and will treat accordingly. - Diagnoses Provider Diagnoses: Bronchitis Discharge - Discharge Plan Condition: Stable Disposition: HOME Prescriptions: Clarithromycin TAB* [Biaxin TAB*] 500 mg PO BID #20 tab guaiFENesin/CODIEN 100MG-10MG* [Robitussin AC 100Mg-10Mg*] 5 ml PO Q4H PRN #250 udc MDD 30 PRN Reason: Cough Patient Education Materials: Acute Bronchitis (ED) Referrals: Rafa Dukes MD [Primary Care Provider] - 3 Days (PLEASE F/U IN 2-3 DAYS) The documentation as recorded by the Kelsey ferrera Edward accurately reflects the service I personally performed and the decisions made by me, Vimal Espinoza MD.
== END 2017-05-23 13:24 | disposition home or self-care (01) ==
LOC: ED 11:38
DX: J40 Bronchitis, not specified as acute or chronic (principal); Z87.891 Personal history of nicotine dependence
CPT/HCPCS: 71020; 99282; A9270-GY

== ENCOUNTER 2018-02-03 15:38 | Observation (INO) | payer MEDICARE ==
[2018-02-03] MEDS ORDERED: NS 0.9% 1000 ML* 1,000 ML IV ONE (15:58)
[2018-02-03 16:20] LABS: ABS Basophils 0 10^3/ul (0-0.2); ABS Eosinophils 0.1 10^3/ul (0-0.6); ABS Lymphocytes 1.1 10^3/ul (1.0-4.8); ABS Monocytes 0.4 10^3/ul (0-0.8); ABS Neutrophils 4.2 10^3/ul (1.5-7.7); ABS Nucleated RBC 0 10^3/ul; Eosinophil % 0.9 % (0-6); Hematocrit 45 % (42-52); Lymphocyte % 19.5 % (25-47); Mean Corpuscular HGB Conc 33 g/dl (31-36); Mean Corpuscular Hemoglobin 32 pg (27-31); Mean Corpuscular Volume 96 fL (80-94); Mean Platelet Volume 7.6 um3 (7.4-10.4); Nucleated Red Blood Cells % 0; Platelet Count 241 10^3/ul (150-450); Red Blood Count 4.69 10^6/ul (4.0-5.4); Red Cell Distribution Width 15 % (10.5-15); White Blood Count 5.8 10^3/ul (3.5-10.8)
--- NOTE | 2018-02-03 16:45 | RAD ---
Indication: Syncope. CT of the brain was performed without IV contrast. Ventricular structures are midline. No midline shift is noted. The extra-axial spaces are unremarkable. There is no evidence of intracranial mass or hemorrhage. Old Lacunar infarct in the left lentiform nucleus and basal ganglia is noted. This is consistent with infarct. Vertebral artery demonstrates calcifications. IMPRESSION: Old infarct with encephalomalacia in the left basal ganglia and lentiform nucleus with ex vacuo dilatation of the left lateral ventricle. No acute changes are noted.
--- NOTE | 2018-02-03 16:49 | RAD ---
Indication: Syncope. CT of the cervical spine was obtained in the axial plane. Sagittal and coronal reconstructed images were obtained. The skull base demonstrates no fracture. Mastoid air cells are well aerated. The C1 ring is intact. No fracture is noted. Degenerative changes of the atlantoaxial joint is noted. No fracture is identified. There is no fracture at C2-C3. No central or foraminal stenosis is noted. Spondylitic ridge at C3-C4 is noted. Left facet arthropathy is noted. No foraminal stenosis is noted. C4-C5 spondylitic ridge flattens the thecal sac. No central or foraminal stenosis is noted. At C5-C6 no fractures noted. Left facet arthropathy is noted. No central foraminal stenosis is noted. At C6-C7 spondylitic ridge, left uncovertebral joint hypertrophy and left foraminal stenosis is noted. At C7-T1 disc space is normal. IMPRESSION: MULTILEVEL DEGENERATIVE DISC DISEASE IS NOTED. NO FRACTURE OF THE CERVICAL SPINE IS NOTED.
--- NOTE | 2018-02-03 16:52 | RAD ---
Indication: Syncope. 2 views of the chest are reviewed. No mediastinal shift is noted. Lung vidales appear hyperinflated. Biapical scarring is noted unchanged from previous exam. No pleural fluid, pneumonia or pneumothorax is noted. IMPRESSION: Apical scarring with hyperinflated lung vidales. No pneumonia is noted.
[2018-02-03 16:57] LABS: EGFR Non-African American 61.5 (>60)
[2018-02-03] MEDS ORDERED: Acetaminophen TAB* 325 MG PO PRN (18:43)
[2018-02-03] MEDS: NS 0.9% 1000 ML* 1,000 ML IV SCH (19:29)
--- NOTE | 2018-02-03 19:50 | ED ---
Santhosh Davila Tiffany, scribed for Rene Maynard MD on 02/03/18 at 1625 . Syncope/Near Syncope - HPI Summary HPI Summary: 62 year old M BIBA to [facility] s/p witnessed syncopal episode while walking to porch at 15:00 today. Patient reports neck pain that does not radiate. Patient denies headache, fever, blurred vision, N/V/D, constipation, chest pain, SOB. Patient's daughter reports recent bilateral lower extremity edema that is new to patient this past week, but has since resolved. Hx of CVA in February 2017 with tpa secondary to left carotid blockage. - History Of Current Complaint Chief Complaint: EDSyncope Time Seen by Provider: 02/03/18 15:54 Hx Obtained From: Patient Onset/Duration: Sudden Onset - at 15:00 today, Still Present Context: Witnessed Associated Signs And Symptoms: Other - neck pain that does not radiate, recent bilateral lower extremity edema that is new to patient this past week but has since resolved; NEGATIVE: headache, fever, blurred vision, N/V/D, constipation, chest pain, SOB - Allergies/Home Medications Allergies/Adverse Reactions: Allergies Allergy/AdvReac Type Severity Reaction Status Date / Time methylprednisolone AdvReac See Comment Verified 02/03/18 18:21 Home Medications: Home Medications Atorvastatin* [Lipitor*] 80 mg PO QPM 02/03/18 [History Confirmed 02/03/18] Ibuprofen TAB* [Motrin TAB* 800 MG] 800 mg PO TID WITH MEALS 02/03/18 [History Confirmed 02/03/18] Losartan TAB* [Cozaar TAB*] 25 mg PO QAM 02/03/18 [History Confirmed 02/03/18] PMH/Surg Hx/FS Hx/Imm Hx Previously Healthy: No Endocrine/Hematology History: Denies: Hx Anticoagulant Therapy, Hx Diabetes, Hx Thyroid Disease Cardiovascular History: Reports: Hx Coronary Artery Disease - CHOLESTEROL CONTROL WITH MEDS, Hx Hypertension - ON MEDICATION, Other Cardiovascular Problems/Disorders - CHOLESTEROL CONTROL WITH MEDICATIONS Denies: Hx Pacemaker/ICD, Hx Peripheral Vascular Disease Respiratory History: Reports: Hx Pneumonia - 20+ years ago, Other Respiratory Problems/Disorders - HX OF COLLAPSE RT LUNG DUE TO RUPTURED CYST 1979/WITH LOBECTOMY Denies: Hx Asthma, Hx Chronic Obstructive Pulmonary Disease (COPD) GI History: Reports: Hx Gastroesophageal Reflux Disease, Hx Ulcer - Hx OF GASTRIC ULCER, BLEEDING History: Denies: Hx Dialysis, Hx Renal Disease Musculoskeletal History: Reports: Hx Arthritis - shoulders,back, knees, Hx Bursitis - shoulders, Other Musculoskeletal History - rina kneeREPLACEMENT , LT ULNAR NERVE REPAIR. DEFORMITY TO LT HAND Sensory History: Reports: Hx Cataracts - rina, Hx Contacts or Glasses - glasses Denies: Hx Hearing Aid Opthamlomology History: Reports: Hx Cataracts - rina, Hx Contacts or Glasses - glasses Neurological History: Reports: Hx CVA, Hx Nerve Disease - LEFT HAND Denies: Hx Dementia, Hx Headaches, Hx Seizures Psychiatric History: Reports: Hx Anxiety - on meds, Hx Depression - on meds, Hx Community Mental Health Tx, Hx Suicide Attempt - [place] ABOUT 10 YEARS AGO. CURRENT W SEREQUEL AND NORVASC, Hx Substance Abuse - ETOH, Other Psychiatric Issues/Disorders - HAS HAD FAMILY MEMBERS AND ANNERVERSARY DATES/AGE CLOSE TO THIS ATTEMPT Denies: Hx Panic Disorder, Hx of Violent Episodes Against Others - Surgical History Surgery Procedure, Year, and Place: 2009 [place]IL[place] [facility] [place] [facility] [place] () [place], [place]. 2011 LEFT DETACHED RETINA REPAIR { no metal -report in pt's chart }, [place]. 2011 LEFT CATARACT [place] [facility] [place] JESUS. [place] [facility] [place] Rt KNEE REPLACEMENT -2013. diskectomy on lower back 04/2015 Hx Anesthesia Reactions: No - Immunization History Date of Tetanus Vaccine: UNKNOWN Date of Influenza Vaccine: this year Infectious Disease History: No Infectious Disease History: Denies: Hx Clostridium Difficile, Hx Hepatitis, Hx Human Immunodeficiency Virus (HIV), Traveled Outside the in Last 30 Days - Family History Known Family History: Positive: Other - POS: alcoholism, mental health, drug use - Social History Alcohol Use: None Alcohol Amount: RECOVERING ALCOHOLIC Hx Substance Use: No Substance Use Type: Reports: None Hx Tobacco Use: Yes Smoking Status (MU): Heavy Every Day Tobacco Smoker Type: Cigarettes Amount Used/How Often: 1 PPD for 50 Length of Time of Smoking/Using Tobacco: 30 YEARS Have You Smoked in the Last Year: Yes Review of Systems Negative: Fever Negative: Blurred Vision Negative: Chest Pain Negative: Shortness Of Breath Positive: Other - NEGATIVE: constipation. Negative: Vomiting, Diarrhea, Nausea Positive: Other - neck pain that does not radiate Positive: Syncope - witnessed while walking to porch at 15:00 today. Negative: Headache All Other Systems Reviewed And Are Negative: Yes Physical Exam - Summary Physical Exam Summary: VITAL SIGNS: Reviewed. GENERAL: Patient is a well-developed and nourished (MALE OR FEMALE) who is lying comfortable in the stretcher. Patient is not in any acute respiratory distress. HEAD AND FACE: No signs of trauma. No ecchymosis, hematomas or skull depressions. No sinus tenderness. EYES: PERRLA, EOMI x 2, No injected conjunctiva, no nystagmus. EARS: Hearing grossly intact. Ear canals and tympanic membranes are within normal limits. MOUTH: Oropharynx within normal limits. NECK: Supple, trachea is midline, no adenopathy, no JVD, no carotid bruit, no c- spine tenderness, neck with full ROM. CHEST: Symmetric, no tenderness at palpation LUNGS: Clear to auscultation bilaterally. No wheezing or crackles. CVS: Ejection systolic murmur ABDOMEN: Soft, non-tender. No signs of distention. No rebound no guarding, and no masses palpated. Bowel sounds are normal. EXTREMITIES: FROM in all major joints, no edema, no cyanosis or clubbing. NEURO: Alert and oriented x 3. No acute neurological deficits. Speech is normal and follows commands. SKIN: Dry and warm Triage Information Reviewed: Yes Vital Signs On Initial Exam: Initial Vitals Temp Pulse Resp BP Pulse Ox 98.6 F 63 12 145/93 98 02/03/18 15:50 02/03/18 15:50 02/03/18 15:50 02/03/18 15:50 02/03/18 15:50 Vital Signs Reviewed: Yes Diagnostics - Vital Signs Vital Signs Temp Pulse Resp BP Pulse Ox 02/03/18 15:50 98.6 F 63 12 145/93 98 - Laboratory Lab Results: Lab Results 02/03/18 02/03/18 02/03/18 Range/Units 16:09 16:10 16:10 WBC 5.8 (3.5-10.8) 10^3/ul RBC 4.69 (4.0-5.4) 10^6/ul Hgb 15.0 (14.0-18.0) g/dl Hct 45 (42-52) % MCV 96 H (80-94) fL MCH 32 H (27-31) pg MCHC 33 (31-36) g/dl RDW 15 (10.5-15) % Plt Count 241 (150-450) 10^3/ul MPV 7.6 (7.4-10.4) um3 Neut % (Auto) 72.7 (38-83) % Lymph % (Auto) 19.5 L (25-47) % Edmunds % (Auto) 6.3 (0-7) % Eos % (Auto) 0.9 (0-6) % Baso % (Auto) 0.6 (0-2) % Absolute Neuts (auto) 4.2 (1.5-7.7) 10^3/ul Absolute Lymphs (auto) 1.1 (1.0-4.8) 10^3/ul Absolute Monos (auto) 0.4 (0-0.8) 10^3/ul Absolute Eos (auto) 0.1 (0-0.6) 10^3/ul Absolute Basos (auto) 0 (0-0.2) 10^3/ul Absolute Nucleated RBC 0 10^3/ul Nucleated RBC % 0 Sodium 142 (139-145) mmol/L Potassium 3.7 (3.5-5.0) mmol/L Chloride 107 (101-111) mmol/L Carbon Dioxide 25 (22-32) mmol/L Anion Gap 10 (2-11) mmol/L BUN 20 (6-24) mg/dL Creatinine 1.19 H (0.67-1.17) mg/dL Est GFR ( Amer) 79.2 (>60) Est GFR (Non-Af Amer) 61.5 (>60) BUN/Creatinine Ratio 16.8 (8-20) Glucose 80 (70-100) mg/dL Lactic Acid (0.5-2.0) mmol/L Calcium 9.4 (8.6-10.3) mg/dL Magnesium 2.1 (1.9-2.7) mg/dL Total Bilirubin 0.60 (0.2-1.0) mg/dL AST 24 (13-39) U/L ALT 31 (7-52) U/L Alkaline Phosphatase 146 H (34-104) U/L Troponin I 0.00 (<0.04) ng/mL B-Natriuretic Peptide 14 ( - 100) pg/mL Total Protein 7.2 (6.4-8.9) g/dL Albumin 4.3 (3.2-5.2) g/dL Globulin 2.9 (2-4) g/dL Albumin/Globulin Ratio 1.5 (1-3) TSH 2.51 (0.34-5.60) mcIU/mL 02/03/18 Range/Units 16:10 WBC (3.5-10.8) 10^3/ul RBC (4.0-5.4) 10^6/ul Hgb (14.0-18.0) g/dl Hct (42-52) % MCV (80-94) fL MCH (27-31) pg MCHC (31-36) g/dl RDW (10.5-15) % Plt Count (150-450) 10^3/ul MPV (7.4-10.4) um3 Neut % (Auto) (38-83) % Lymph % (Auto) (25-47) % Edmunds % (Auto) (0-7) % Eos % (Auto) (0-6) % Baso % (Auto) (0-2) % Absolute Neuts (auto) (1.5-7.7) 10^3/ul Absolute Lymphs (auto) (1.0-4.8) 10^3/ul Absolute Monos (auto) (0-0.8) 10^3/ul Absolute Eos (auto) (0-0.6) 10^3/ul Absolute Basos (auto) (0-0.2) 10^3/ul Absolute Nucleated RBC 10^3/ul Nucleated RBC % Sodium (139-145) mmol/L Potassium (3.5-5.0) mmol/L Chloride (101-111) mmol/L Carbon Dioxide (22-32) mmol/L Anion Gap (2-11) mmol/L BUN (6-24) mg/dL Creatinine (0.67-1.17) mg/dL Est GFR ( Amer) (>60) Est GFR (Non-Af Amer) (>60) BUN/Creatinine Ratio (8-20) Glucose (70-100) mg/dL Lactic Acid 1.2 (0.5-2.0) mmol/L Calcium (8.6-10.3) mg/dL Magnesium (1.9-2.7) mg/dL Total Bilirubin (0.2-1.0) mg/dL AST (13-39) U/L ALT (7-52) U/L Alkaline Phosphatase (34-104) U/L Troponin I (<0.04) ng/mL B-Natriuretic Peptide ( - 100) pg/mL Total Protein (6.4-8.9) g/dL Albumin (3.2-5.2) g/dL Globulin (2-4) g/dL Albumin/Globulin Ratio (1-3) TSH (0.34-5.60) mcIU/mL Result Diagrams: 02/03/18 16:10 02/03/18 16:10 Lab Statement: Any lab studies that have been ordered have been reviewed, and results considered in the medical decision making process. - Radiology CXR Radiology Interpretation Completed By: Radiologist - Apical scarring with hyperinflated lung vidales. No pneumonia is noted. ED physician has reviewed this report. - CT Brain CT Interpretation Completed By: Radiologist - Old infarct with encephalomalacia in the left basal ganglia and lentiform nucleus with ex vacuo dilatation of the left lateral ventricle. No acute changes are noted. ED physician has reviewed this report. C-spine CT Interpretation Completed By: Radiologist - MULTILEVEL DEGENERATIVE DISC DISEASE IS NOTED. NO FRACTURE OF THE CERVICAL SPINE IS NOTED. ED physician has reviewed this report. - EKG 15:59 Cardiac Rate: NL - 73 BPM EKG Rhythm: Sinus Rhythm EKG Interpretation: No ST elevations. Normal axis. Course/Dx Assessment/Plan: Patient is a 62-year-old male with past medical history significant for CVA, an unknown left carotid artery 100% occlusion. Patient was seen for these at [facility] and they decided not to touch the occlusion. Test resultsany significant abnormality except for creatinine 1.19. Head CT impression: Old INFARCT with encephalomalacia in the left basal ganglia and lentiform nucleus with exvacuodilaton of the left lateral ventricle. No acute changes are noted. CT scans CT impression: Multilevel degenerative disc disease is noted. No fracture CERVICAL spine is noted. Chest x-ray impression: Atypical scaring with hyperinflated lungs. No pneumonia noted. The patient had a positive syncopal episode. It was a positive loss of consciousness. At this point I cannot distinguish the patient had a vasovagal syncope versus a true syncope syncopal episode. Therefore I discussed my physical exam and findings with and Dr. Betancourt from the hospitalist services who accepted the patient for admission. Patient is hemodynamically stable alert and oriented 3. - Diagnoses Differential Diagnosis/HQI/PQRI: Positive: Cerebral Vascular Accident, Dysrhythmia, Seizure, Transient Ischemic Attack, Vasovagal Episode Provider Diagnoses: Syncope - Physician Notifications Discussed Care of Patient With: Jitendra Betancourt Time Discussed With Above Provider: 17:14 Instructed by Provider To: Other - Dr. Betancourt, hospitalist, agrees to admit patient. Discharge - Sign-Out/Discharge Documenting (check all that apply): Discharge/Admit/Transfer - Discharge Plan Condition: Stable Disposition: ADMITTED TO [facility] - Billing Disposition and Condition Condition: STABLE Disposition: Admitted to [facility] The documentation as recorded by the Santhosh ferrera Tiffany accurately reflects the service I personally performed and the decisions made by me, Rene Maynard MD.
[2018-02-03] MEDS: Gabapentin CAP(*) 300 MG PO SCH (22:02)
[2018-02-03] MEDS: Heparin VIAL(*) 5000 UNITS/ML VIAL (FIVE THOUSAND) SUBCUT SCH (22:02)
--- NOTE | 2018-02-04 02:32 | HP ---
CC: Dr. Rafa Dukes * HISTORY AND PHYSICAL: DATE OF ADMISSION: 02/03/18 PRIMARY CARE PROVIDER: Dr. Rafa Dukes. ATTENDING PHYSICIAN: Dr. Jitendra Betancourt * (dictated by Carla Castro NP) . CHIEF COMPLAINT: Syncopal episode. HISTORY OF PRESENT ILLNESS: Mr. Aparicio is a 62-year-old male with past medical history significant for hypertension, depression, emphysema, hyperlipidemia, tobacco abuse, history of alcoholism, GERD, CVA, 100% left carotid occlusion, who had been in his usual state of health today when he got up and went down 7 steps to see where his daughter was, when he got to the bottom of the stairs his daughter noticed that he was shaking, pale and diaphoretic. He then had a syncopal episode lasting approximately 3 seconds. She caught him and he did not actually fall. The patient also reports earlier today having increased pain when he tips his head back causing a headache. He has full range of motion of his neck. He denies any recent falls or injuries to his neck. He denies any recent fevers, chills, chest pain, shortness of breath , nausea, vomiting, diarrhea. He reports drinking plenty of fluids today and drinking ice tea. He denies any lightheadedness or dizziness prior to his episode. He denies any urinary symptoms such as urgency, increased frequency or dysuria. The patient does not recall, but his daughter states that he reported seeing black before passing out earlier. His daughter also reports that he developed bilateral LE edema approximately a week ago and he has been using compression stocking for a week, and the edema has resolved. Due to his syncopal episode, he presented to the emergency room for further evaluation. While in the emergency room, he had labs that were unremarkable. He has slightly elevated creatinine above his baseline and elevated alk phos, troponin of 0.00. He had an EKG without acute findings. He had a chest x-ray without acute findings. He had a brain CT showing an old infarct. He had a cervical spine CT showing multilevel degenerative disk disease, but no acute injuries. He had orthostatic vital signs showing orthostasis when he went from lying to sitting and standing. He received a liter of fluid and hospitalists were asked to evaluate the patient for admission. PAST MEDICAL HISTORY: 1. Hypertension. 2. Depression. 3. Emphysema. 4. Hyperlipidemia. 5. Tobacco abuse. 6. History of alcoholism. 7. GERD. 8. Cerebrovascular accident. 9. 100% left carotid occlusion. PAST SURGICAL HISTORY: 1. Status post transurethral resection of prostate. 2. Status post left ulnar nerve repair. 3. Status post L5-S1 hemilaminectomy. 4. Status post inguinal hernia repair. 5. Status post left total knee arthroplasty. 6. Status post right cataract extraction and repair of detached retina. 7. Status post right lung lobectomy. 8. Status post right total knee replacement, etc. 9. Status post right lung lobectomy. 10. Status post right total knee arthroscopy. HOME MEDICATIONS: Include: 1. Losartan 25 mg oral every morning. 2. Ibuprofen 800 mg oral 3 times daily with meals. 3. Atorvastatin 80 mg oral every evening. 4. Omeprazole 40 mg oral every morning. 5. Wellbutrin XL 300 mg oral every morning. 6. Aspirin 325 mg oral every morning. 7. Gabapentin 900 mg oral 3 times daily. 8. Norvasc 10 mg oral every morning. ALLERGIES: No known drug allergies. The patient has sensitivity to large doses of prednisone causing psychosis. FAMILY HISTORY: The patient's mother had a history of CVA. No family history of coronary artery disease. He had paternal grandmother with a history of diabetes mellitus. Father with a history of lung cancer and a brother with history of bladder and lung cancer. SOCIAL HISTORY: The patient is a former smoker, he quit smoking in 2017. Prior to that he had a 1-pack a day smoking history for approximately 50 years. He is a former alcoholic and has been sober since 2014. He denies any recreational drug use. His daughter Kayla Prieto will be his surrogate decision maker in the event he is unable to make decisions for himself. REVIEW OF SYSTEMS: I performed an 11-point review of systems. All the pertinent positives and negatives as mentioned in the history of present illness. Remaining review of systems are negative. PHYSICAL EXAMINATION GENERAL APPEARANCE: The patient is alert, pleasant, and appears to be in no acute distress. VITAL SIGNS: Temperature 98.6, heart rate 59, respiratory rate 14, O2 sat 97% on room air, blood pressure 150/91. HEENT: Normocephalic, atraumatic. Pupils are equal and reactive to light. Extraocular movements are intact. There is no nystagmus present. RESPIRATORY: There is no accessory muscle use. Lungs are clear to auscultation bilaterally. CARDIOVASCULAR: Regular rate and rhythm. S1 and S2 present. There are no murmurs, rubs, or gallops heard. ABDOMEN: Soft, nontender, and nondistended. Bowel sounds present x4. EXTREMITIES: No lower extremity edema. DP and PT pulses are 2+ and symmetric. MUSCULOSKELETAL: There is no clubbing or cyanosis noted. The patient exhibits good strength in all extremities. NEUROLOGICAL: The patient is alert and oriented x4. Cranial nerves II through XII are grossly intact. PSYCHOLOGICAL: The patient is calm and cooperative. SKIN: There are no rashes or abnormalities seen. DIAGNOSTIC STUDIES/LABORATORY DATA: Sodium 142, potassium 3.7, chloride 107, CO2 25, BUN 20, creatinine 1.91, glucose 80. White blood cell count 5.8, hemoglobin 15.0, hematocrit 45, and platelet count 241. Troponin 0.00, TSH 2.51. EKG shows a sinus bradycardia and a rate of 58. There are no acute signs of ischemia and a right bundle branch block. His EKG is similar to previous from 03/06/17. Chest x-ray from today. Radiologist's impression: Apical scarring with hyperinflated lung field. No pneumonia noted. Brain CT from today. Radiologist's impression: Old infarct with encephalomyelocele in the left basal ganglia and lentiform nucleus with exo vasodilation of the left lateral ventricle. No acute changes are noted. Cervical spine CT from today. Radiologist's impression: Multilevel degenerative disk disease as noted. No fracture of the cervical spine noted. IMPRESSION: Mr. Aparicio is a 62-year-old male with past medical history significant for cerebrovascular accident, hypertension, depression, emphysema, hyperlipidemia, history of tobacco abuse, history of alcoholism, gastro- esophageal reflux disease and left carotid occlusion, who presents to the emergency room after syncopal event earlier today. He will be admitted as an observation for syncope. ASSESSMENT/PLAN: 1. Syncope. The patient reports no prodromal symptoms prior to the syncopal episode, although his daughter states he told her everything went black. He reports getting right up from laying down and going downstairs prior to passing out. He is orthostatic in the ER with both his systolic and diastolic blood pressures. The patient had no acute findings on his brain CT. We will give him IV fluids overnight and recheck his orthostasis in the morning. He will be monitored on telemetry. We will trend his troponins. I am going to get an echocardiogram. The patient's daughter report a history of lower extremity edema a week ago, but this has since resolved after using elevation and compression stockings. 2. Hypertension. The patient will be continued on his home losartan and amlodipine for now, although these may need to be adjusted if he continues to be orthostatic. 3. Hyperlipidemia. The patient will be continued on his home atorvastatin. 4. Chronic obstructive pulmonary disease. The patient has no signs of acute chronic obstructive pulmonary disease exacerbation at this time. He is not on any maintenance medications. 5. Depression. The patient had a remote history of suicide attempts. Continue home Wellbutrin. 6. Gastroesophageal reflux disease. The patient will be continued on his home omeprazole. 7. History of tobacco abuse. The patient quit smoking in 2017. 8. Alcoholism. The patient is recovering alcoholic and has been sober since 2013. 9. History of cerebrovascular accident with left carotid occlusion. The patient will be continued on atorvastatin and aspirin. 10. Fluids, electrolytes, and nutrition. The patient will be on a heart- healthy diet. 11. Code status. Full code. 12. DVT prophylaxis. The patient is at high risk and will have subcu heparin. 13. Disposition. Observation. TIME SPENT: Time for this admission was approximately 60 minutes, greater than half of that was spent [id number] with the patient discussing medications, past medical history, the events leading up to his arrival today, performing a physical examination. The case has been reviewed with the attending, Dr. Betancourt, who agrees with the plan of care. Reviewed by MAIRA PIERRE-Madelaine 02/05/18 [id number]/[facility] #: [id number] [place]
[2018-02-04] MEDS: Heparin VIAL(*) 5000 UNITS/ML VIAL (FIVE THOUSAND) SUBCUT SCH ×2 (05:22→13:19)
[2018-02-04] MEDS: NS 0.9% 1000 ML* 1,000 ML IV SCH (06:06)
[2018-02-04 06:25] LABS: EGFR Non-African American 75.2 (>60)
[2018-02-04] MEDS ORDERED: Omeprazole CAP* 20 MG PO SCH (07:30)
[2018-02-04] MEDS: Gabapentin CAP(*) 300 MG PO SCH ×2 (07:52→13:19)
[2018-02-04] MEDS ORDERED: Losartan TAB* 25 MG PO SCH (09:00)
[2018-02-04] MEDS ORDERED: BuPROPion XL* 300 MG TAB.XL PO SCH (09:00)
[2018-02-04] MEDS ORDERED: amLODIPine TAB* 5 MG PO SCH (09:00)
[2018-02-04] MEDS ORDERED: Aspirin TAB* 325 MG PO SCH (09:00)
--- NOTE | 2018-02-04 09:46 | ECHO ---
Patient: PUJA DELAROSA [facility] Rec#: [id number] : 1955 Date: 02/04/2018 Age: 62y Height: 185.4 cm / 73.0 in Weight: 99.3 kg / 218.9 lbs Sex: M BSA: 2.2 Room#: [facility] Admit Date#: 02/03/2018 Type: Inpatient Referring: Carla Barger NP Reading: Franco Sun DO Endoscopy Support Specialist: Monica Roa RN RDCS CC: Rafa Dukes MD Transthoracic Echocardiogram Indication: Syncope BP: 113/64 HR: 56 Rhythm: Bradycardia Findings History: HTN, HLD, CVA, carotid occlusion, emphysema, former ETOH abuse, former smoker, depression. Technical Comments: The study is technically limited due to the patient's history of COPD. The study is technically limited due to the patient's smoking history. Completed at 0855. Left Ventricle: The left ventricular chamber size is normal. There is no left ventricular hypertrophy. Global left ventricular wall motion and contractility are within normal limits. There is normal left ventricular systolic function. The estimated ejection fraction is 55-60%. Normal left ventricular diastolic filling is observed. Left Atrium: The left atrial chamber size is normal. Right Ventricle: The right ventricular chamber size and systolic function are within normal limits. Right Atrium: The right atrium is mildly dilated. Aortic Valve: The aortic valve is trileaflet. The aortic valve leaflets are mildly thickened. There is trace to mild aortic regurgitation. There is no evidence of aortic stenosis. Mitral Valve: The mitral valve leaflets are mildly thickened. There is a trace of mitral regurgitation. There is no evidence of mitral stenosis. Tricuspid Valve: The tricuspid valve leaflets are normal. There is trace tricuspid regurgitation. No pulmonary hypertension is noted. There is no tricuspid stenosis. Pulmonic Valve: The pulmonic valve appears normal. There is a trace pulmonic regurgitation. There is no pulmonic stenosis. Pericardium: There is no significant pericardial effusion. Aorta: There is no dilatation of the ascending aorta. There is no dilatation of the aortic arch. There is no dilation of the aortic root. Pulmonary Artery: The main pulmonary artery is not well visualized. Venous: The venous system is not well visualized. The inferior vena cava is not visualized. Conclusions The left ventricular chamber size is normal. There is no left ventricular hypertrophy. Global left ventricular wall motion and contractility are within normal limits. There is normal left ventricular systolic function. The estimated ejection fraction is normal at 55-60%. The left atrial chamber size is normal. The right ventricular chamber size and systolic function are within normal limits. No significant valvular abnormalities noted. None prior for comparison at time of interpretation. Measurements Name Value Normal Range RVDdMajor (2D) 3 cm (2.2 - 4.4) RAd ISD 4CH 5.3 cm (3.4 - 4.9) RA (A4C)W 3.5 cm (2.9 - 4.6) IVSd (2D) 1.1 cm (0.6 - 1) LVPWd (2D) 1 cm (0.6 - 1) LVIDd (2D) 4.5 cm (3.6 - 5.4) LVIDs (2D) 3 cm - LV FS (2D) 31 % (25 - 45) Aortic Annulus 2.1 cm (1.4 - 2.6) Ao root diameter (2D) 3.2 cm (2.1 - 3.5) Ascending Ao 3.2 cm (2.1 - 3.4) Aortic arch 3.2 cm (1.8 - 3.4) LA dimension (AP) 2D 3.5 cm (2.3 - 3.8) LAd ISD 4CH 5.4 cm (2.9 - 5.3) LA ISD 4CH W 4.1 cm (2.5 - 4.5) Name Value Normal Range LA ESV SP 4CH (A/L) 56 ml - LA ESV SP 2CH (A/L) 69 ml - LA ESV BP (A/L) 62 ml - LA ESV BP (A/L) index 28 ml/m2 - LA ESV SP 4CH (MOD) 52 ml - LA ESV SP 2CH (MOD) 66 ml - Name Value Normal Range MV E-wave Vmax 0.77 m/sec - MV deceleration time 291 msec - MV A-wave Vmax 1.1 m/sec - MV E:A ratio 0.7 ratio - LV septal e' Vmax 0.09 m/sec - LV lateral e' Vmax 0.1 m/sec - LV E:e' septal ratio 8.6 ratio - LV E:e' lateral ratio 7.7 ratio - Name Value Normal Range AV Vmax 1 m/sec - AV VTI 40.3 cm - AV peak gradient 12 mmHg - AV mean gradient 6.9 mmHg - LVOT Vmax 1.2 m/sec - LVOT VTI 25.4 cm - LVOT peak gradient 5.3 mmHg - LVOT mean gradient 3 mmHg - LORI Vmax 0.56 m/sec - Name Value Normal Range TR Vmax 2.6 m/sec - TR peak gradient 27 mmHg - RAP 8 mmHg - RVSP 35 mmHg - Name Value Normal Range PV Vmax 0.88 m/sec -
[2018-02-04 16:04] VITALS: BP 131/81
[2018-02-04] MEDS ORDERED: Atorvastatin* 80 MG TAB PO SCH (18:00)
--- NOTE | 2018-02-05 11:11 | DS ---
CC: Rafa Dukes MD; Dr. Armenta * DISCHARGE SUMMARY: DATE OF ADMISSION: 02/03/18 DATE OF DISCHARGE: 02/04/18 ATTENDING FOR THIS ADMISSION: Cherie James MD MY ATTENDING FOR TODAY: Cherie James MD *(DICTATED BY TRANG RAY NP) PRIMARY CARE PROVIDER: Rafa Dukes MD HOSPITAL COURSE: This is a very pleasant 62-year-old male patient who has very little medical history. He did have a stroke in February 2017, for which he received tPA. However, he reports no further issues since his stroke. He was in his normal state of health at home where he reported he had lied down to take a nap because his neck was a little sore. He does have some arthritic changes in the cervical spine, so he lied down because he was getting a headache and abruptly got up and walked around the couch and then suddenly felt dizzy, and then felt like he was passing out. The patient's daughter was right next to him, guided him to the floor, so he did not have a traumatic fall. The patient awoke and EMS was called. He was sent to the emergency department for evaluation of his syncope and collapse. In the emergency room, his labs were unremarkable. His creatinine was slightly elevated, likely he had some dehydration. He was a little hypotensive. His troponins were negative at 0.00 x2. He had an EKG with no acute ST segment elevations or further findings and chest x-ray was also with no cardiopulmonary disease. He was mildly orthostatic in the emergency department. He received a liter of fluid and also the maintenance fluid was continued throughout the night and the patient seemed to be feeling better. The patient did have an echocardiogram as well. The echo that was performed did not have any acute pathology. Reading on the echo shows normal left ventricular chamber size, no hypertrophy, global left ventricular wall motion and contractility are within normal limits. There is normal ventricular systolic function, estimated ejection fraction was 55% to 60% . Left atrial chamber size is normal. Right ventricular chamber size and systolic function are within normal limits, and there are no significant valvular abnormalities noted. I did also briefly consult by phone with Dr. Bella of Neurology given that he did have a left MCA stroke last year. At that time, it was noted on his CT angiogram that he had a completely occluded left internal carotid artery, so I did discuss this briefly with Dr. Bella as we would be concerned if this was any etiology in the syncope he had. However, his right internal carotid was clear at that time last year and is not likely to have occluded within 1 year causing a bilateral occlusion and then contributing to syncope. At this point, his syncope was likely vasovagal in nature. The patient had been wearing compression stockings for a couple of days and took them off and then abruptly changed positions and syncopized. DISCHARGE DIAGNOSES: 1. Vasovagal syncope. 2. Dehydration with mild orthostasis. 3. History of hypertension. 4. Hyperlipidemia. 5. History of tobacco use. 6. Gastroesophageal reflux disease. 7. History of cerebrovascular accident. 8. A 100% occluded left internal carotid artery. DISPOSITION: The patient was stable. His orthostasis resolved. He responded well to fluids. He was counseled on free water intake as opposed to ice tea and coffee which can be very dehydrating. The patient was also told to change position slowly and then, if he is going to wear his compression socks, he should place them back on before he gets out of bed to help control any further orthostasis. He was instructed to follow up with Dr. Norm Armenta in the next 1 to 2 weeks for followup and checking of his blood pressure. DISCHARGE MEDICATIONS: Include: 1. Losartan 25 mg daily. 2. Ibuprofen 800 mg 3 times a day with meals as needed. 3. Atorvastatin 80 mg daily. 4. Omeprazole 40 mg daily. 5. Wellbutrin 300 mg every day. 6. Aspirin 325 mg daily. 7. Gabapentin 900 mg 3 times a day. 8. Norvasc 10 mg daily. DISCHARGE INSTRUCTIONS: The patient was discharged in stable condition. All questions were answered. I also had a lengthy discussion with the patient's daughter Vanda, who is a registered nurse here at our hospital and explained the plan of care. She is in agreement and also understands her father's followups and will continue to monitor the patient closely. TRANG RAY, [place] [id number]/[facility] #: [id number] [facility] CENTERJeff
== END 2018-02-04 16:51 | disposition home or self-care (01) ==
LOC: ED 15:38 → MEDTELE 18:26
PROVIDERS: ADMIT Internal Medicine; ATTEND Internal Medicine
DX: R55 Syncope and collapse (principal); E86.0 Dehydration; I10 Essential (primary) hypertension; E87.5 Hyperkalemia; Z87.891 Personal history of nicotine dependence; K21.9 Gastro-esophageal reflux disease without esophagitis; Z86.73 Personal history of transient ischemic attack (TIA), and cerebral infarction without residual deficits; Z79.82 Long term (current) use of aspirin; I65.22 Occlusion and stenosis of left carotid artery; Z90.2 Acquired absence of lung [part of]; Z96.651 Presence of right artificial knee joint; F10.21 Alcohol dependence, in remission
CPT/HCPCS: 36415; 70450; 71046; 72125; 80048; 80053; 83605; 83735; 83880; 84443; 84484; 85025; 93005; 93306; 96360; 99284; A9270-GY; G0378; J1644

== ENCOUNTER 2019-02-07 07:22 | Emergency (ER) | payer MEDICARE ==
[2019-02-07 07:56] LABS: Rapid Strep Molecular Negative (Negative)
[2019-02-07 08:13] VITALS: BP 178/100
--- NOTE | 2019-02-07 08:17 | ED ---
Throat Pain/Nasal Congestion - HPI Summary HPI Summary: Patient is a 63-year-old male presenting to the ED with throat pain 2 days. He is also endorsing a cough. Endorses odynophagia without dysphagia. Patient is able to tolerate secretions, liquid and food intake. Denies any fevers, sweats, chills. Denies any chest pain or SOB. Denies any abdominal pain, nausea, vomiting, diarrhea, constipation. He states he has had this in the past. He has been taking ibuprofen 600mg with little relief. Cough is with production of clear sputum. - History of Current Complaint Chief Complaint: EDThroatPain Time Seen by Provider: 02/07/19 07:30 Hx Obtained From: Patient Onset/Duration: Sudden Onset Severity: Mild Associated Signs And Symptoms: Positive: Dysphagia. Negative: FB Sensation, Drooling, Wheezing, Hoarseness, Sinus Discomfort, Nasal Discharge - Epiglottits Risk Factors Epiglottis Risk Factors: Negative - Allergies/Home Medications Allergies/Adverse Reactions: Allergies Allergy/AdvReac Type Severity Reaction Status Date / Time methylprednisolone AdvReac See Comment Verified 02/07/19 07:27 PMH/Surg Hx/FS Hx/Imm Hx Previously Healthy: Yes Endocrine/Hematology History: Denies: Hx Anticoagulant Therapy, Hx Diabetes, Hx Thyroid Disease Cardiovascular History: Reports: Hx Coronary Artery Disease - CHOLESTEROL CONTROL WITH MEDS, Hx Hypertension - ON MEDICATION, Other Cardiovascular Problems/Disorders - CHOLESTEROL CONTROL WITH MEDICATIONS Denies: Hx Pacemaker/ICD, Hx Peripheral Vascular Disease Respiratory History: Reports: Hx Pneumonia - 20+ years ago, Other Respiratory Problems/Disorders - HX OF COLLAPSE RT LUNG DUE TO RUPTURED CYST 1979/WITH LOBECTOMY Denies: Hx Asthma, Hx Chronic Obstructive Pulmonary Disease (COPD) GI History: Reports: Hx Gastroesophageal Reflux Disease, Hx Ulcer - Hx OF GASTRIC ULCER, BLEEDING History: Denies: Hx Dialysis, Hx Renal Disease Musculoskeletal History: Reports: Hx Arthritis - shoulders,back, knees, Hx Bursitis - shoulders, Other Musculoskeletal History - rina kneeREPLACEMENT , LT ULNAR NERVE REPAIR. 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 CURRENT W SEREQUEL AND NORVASC, Hx Substance Abuse - ETOH, Other Psychiatric Issues/Disorders - HAS HAD FAMILY MEMBERS AND ANNERVERSARY DATES/AGE CLOSE TO THIS ATTEMPT Denies: Hx Panic Disorder, Hx of Violent Episodes Against Others - Surgical History Surgery Procedure, Year, and Place: 2009 BILATERAL INGUINAL HERNIA REPAIR, [facility] [place] LEFT KNEE REPLACEMENT, [facility] [place] 1979 RIGHT UPPER LUNG () LOBECTOMY, [place]. 2011 LEFT DETACHED RETINA REPAIR { no metal -report in pt's chart }, [place]. 2011 LEFT CATARACT EXTRACTION WITH IOL IMPLANT, [facility] [place] - W/ DR DE JESUS. TRK REPLACEMENT-RIGHT CATARACT -LEFT SIDED CVA-. LEFT ULNAR REPAIR, [facility] [place] 2012. Rt KNEE REPLACEMENT -2013. diskectomy on lower back 04/2015 Hx Anesthesia Reactions: No - Immunization History Date of Tetanus Vaccine: UNKNOWN Date of Influenza Vaccine: this year Hx Pertussis Vaccination: No Immunizations Up to Date: Yes Infectious Disease History: No Infectious Disease History: Denies: Hx Clostridium Difficile, Hx Hepatitis, Hx Human Immunodeficiency Virus (HIV), Traveled Outside the [place] in Last 30 Days - Family History Known Family History: Positive: Other - POS: alcoholism, mental health, drug use Family History: CVA - Social History Occupation: Unemployed Lives: With Family Alcohol Use: None Alcohol Amount: RECOVERING ALCOHOLIC Hx Substance Use: No Substance Use Type: Reports: None Hx Tobacco Use: Yes Smoking Status (MU): Former Smoker Type: Cigarettes Amount Used/How Often: 1 PPD for 50 Length of Time of Smoking/Using Tobacco: 30 YEARS Have You Smoked in the Last Year: Yes Review of Systems Constitutional: Negative Negative: Fever, Chills, Fatigue, Skin Diaphoresis Positive: Sore Throat Negative: Palpitations, Chest Pain Negative: Shortness Of Breath, Cough Negative: Arthralgia, Myalgia Negative: Rash, Bruising Neurological: Negative All Other Systems Reviewed And Are Negative: Yes Physical Exam Triage Information Reviewed: Yes Vital Signs On Initial Exam: Initial Vitals Temp Pulse Resp BP Pulse Ox 98.8 F 78 16 189/101 95 02/07/19 07:24 02/07/19 07:24 02/07/19 07:24 02/07/19 07:24 02/07/19 07:24 Vital Signs Reviewed: Yes Appearance: Positive: Well-Appearing, Well-Nourished Skin: Positive: Warm, Skin Color Reflects Adequate Perfusion Head/Face: Positive: Normal Head/Face Inspection Eyes: Positive: EOMI, Conjunctiva Clear ENT: Positive: Pharyngeal erythema, TMs normal. Negative: TM bulging, Tonsillar swelling, Tonsillar exudate, Hoarse voice, Dental tenderness, Sinus tenderness Neck: Positive: Supple, No Lymphadenopathy Respiratory/Lung Sounds: Positive: Clear to Auscultation, Breath Sounds Present Cardiovascular: Positive: Normal, Pulses are Symmetrical in both Upper and Lower Extremities Musculoskeletal: Positive: Strength/ROM Intact Neurological: Positive: Sensory/Motor Intact, Alert, Oriented to Person Place, Time, Speech Normal Psychiatric: Positive: Affect/Mood Appropriate Diagnostics - Vital Signs Vital Signs Temp Pulse Resp BP Pulse Ox 02/07/19 07:24 98.8 F 78 16 189/101 95 - Laboratory Lab Results: Lab Results 02/07/19 Range/Units 07:30 Group A Strep Rapid Negative (Negative) Lab Statement: Any lab studies that have been ordered have been reviewed, and results considered in the medical decision making process. EENT Course/Dx - Course Course Of Treatment: Patient is evaluated for throat pain/odynophagia x 2 days. Symptoms are not worse or better with medication. Patient continues to be able to swallow, eat and drink normally. Denies any fevers, sweats, chills. Strep swab obtained and is negative. On physical examination, there is some pharyngeal erythema without signs of inflammation, obstruction or edema. Patient is dx with phayrngitis. - Diagnoses Provider Diagnoses: Pharyngitis Discharge - Sign-Out/Discharge Documenting (check all that apply): Patient Departure Patient Received Moderate/Deep Sedation with Procedure: No - Discharge Plan Condition: Stable Disposition: HOME Patient Education Materials: Pharyngitis (ED) Referrals: Rafa Dukes MD [Primary Care Provider] - Additional Instructions: Cepacol or chloraseptic tabs over the counter for relief of throat pain Ibuprofen 600mg three times daily - do not exceed 5 days in a row - Billing Disposition and Condition Condition: STABLE Disposition: Home
== END 2019-02-07 08:12 | disposition home or self-care (01) ==
LOC: ED 07:22
DX: J02.9 Acute pharyngitis, unspecified (principal); R13.10 Dysphagia, unspecified; E78.5 Hyperlipidemia, unspecified; F41.9 Anxiety disorder, unspecified; F32.9 Major depressive disorder, single episode, unspecified; Z88.8 Allergy status to other drugs, medicaments and biological substances; Z96.653 Presence of artificial knee joint, bilateral; Z87.891 Personal history of nicotine dependence
CPT/HCPCS: 87651; 99282

== ENCOUNTER 2020-12-17 07:22 | Observation (INO) ==
[~2020-12-17 07:22] MED LIST changes: -Acetaminophen TAB* 325 MG PO PRN; -Buffered Lidocaine 0.9% SYRIN* 5 ML/SYR SYRINGE INTRADERM ONE; +Buffered Lidocaine 1% SYRIN 1 ml INTRADERM ONE; +Lactated Ringers 1000 ml BAG 1,000 ML IV SCH
[2020-12-17] MEDS ORDERED: ceFAZolin 2 GM PREMIX 2 GM/50 ML BAG ONE (07:45)
[2020-12-17] MEDS ORDERED: Buffered Lidocaine 1% SYRIN 1 ml INTRADERM ONE (07:45)
[2020-12-17] MEDS ORDERED: Dexmedetomidine 200 mcg/2 ml 2 ml VIAL (200 mcg) ONE (08:20)
[2020-12-17] MEDS ORDERED: oxyCODONE/Acetamin 5/325 mg TAB PO PRN (08:32)
[2020-12-17] MEDS ORDERED: DiMENhydriNATE IV 50 mg/ml 1 ml VIAL IV PUSH PRN (08:32)
[2020-12-17] MEDS ORDERED: Naloxone 0.4 mg VIAL 0.4 mg/ml 1 ml VIAL IV PRN (08:32)
[2020-12-17] MEDS ORDERED: fentaNYL 100 mcg/2 ml 50 MCG/ML VIAL IV PRN (08:32)
[2020-12-17] MEDS ORDERED: Ondansetron 4 mg VIAL 2 MG/ML 2 ml VIAL IV PRN ×2 (08:32→12:31)
[2020-12-17] MEDS ORDERED: Midazolam 2 mg/2 ml VIAL 1 mg/ml 2 ml VIAL (2 mg) ONE (09:39)
[2020-12-17] MEDS ORDERED: EPHEDrine (Pressors) 50 MG/ML VIAL ONE (10:04)
[2020-12-17] MEDS ORDERED: Ondansetron 4 mg VIAL 2 MG/ML 2 ml VIAL ONE (10:04)
[2020-12-17] MEDS ORDERED: Glycopyrrolate IV 0.2 MG/ML 1 ML VIAL ONE ×2 (10:34→13:29)
[2020-12-17] MEDS ORDERED: Propofol 10 MG/ML 20 ML BTL ONE (10:43)
[2020-12-17] MEDS ORDERED: Lactulose 30 ml UDC PO PRN (12:31)
[2020-12-17] MEDS ORDERED: diPHENhydraMINE 25 mg TAB PO PRN (12:31)
[2020-12-17] MEDS ORDERED: Morphine 2 MG/ML SYRINGE IV PRN (12:31)
[2020-12-17] MEDS ORDERED: Magnesium Hydroxide LIQ 30 ML UDC PO PRN (12:31)
[2020-12-17] MEDS ORDERED: diPHENhydraMINE IV 50 MG/ML 1 ml VIAL (BENADRYL) IV PRN (12:31)
[2020-12-17] MEDS ORDERED: Ondansetron ODT 4 mg TAB 4 MG TAB PO PRN (12:31)
[2020-12-17] MEDS: Lactated Ringers 1000 ml BAG 1,000 ML IV SCH (14:47)
[2020-12-17 16:31] LABS: ABS Eosinophils 0.1 10^3/ul (0-0.6); ABS Lymphocytes 1.2 10^3/ul (1.0-4.8); ABS Monocytes 0.4 10^3/ul (0-0.8); ABS Neutrophils 7.1 10^3/ul (1.5-7.7); Eosinophil % 0.7 %; Hematocrit 41 % (42-52); Hemoglobin 13.7 g/dL (14.0-18.0); Lymphocyte % 13.8 %; Mean Corpuscular HGB Conc 33 g/dL (31-36); Mean Corpuscular Hemoglobin 34 pg (27-31); Mean Corpuscular Volume 101 fL (80-94); Mean Platelet Volume 7.9 fL (7.4-10.4); Platelet Count 194 10^3/uL (150-450); Red Blood Count 4.08 10^6 /uL (4.18-5.48); Red Cell Distribution Width 15 % (10-15); White Blood Count 8.9 10^3/uL (3.5-10.8)
[2020-12-17 16:51] LABS: Calcium 8.8 mg/dL (8.6-10.3); EGFR African American 82.5 (>60); EGFR Non-African American 68.2 (>60)
[2020-12-17] MEDS: ceFAZolin 1 GM ADVAN 1 GM in NS 0.9% 50 ML 50 ML IVPB SCH (17:30)
[2020-12-17] MEDS: Magnesium Hydroxide LIQ 30 ML UDC PO SCH (20:47)
[2020-12-17] MEDS ORDERED: Mometasone 220 MCG MDI INH SCH (21:00)
[2020-12-18] MEDS: Lactated Ringers 1000 ml BAG 1,000 ML IV SCH ×2 (01:35→12:50)
[2020-12-18] MEDS: ceFAZolin 1 GM ADVAN 1 GM in NS 0.9% 50 ML 50 ML IVPB SCH ×2 (01:36→10:10)
[2020-12-18 06:31] LABS: Hematocrit 42 % (42-52); Hemoglobin 13.9 g/dL (14.0-18.0); Mean Platelet Volume 8.2 fL (7.4-10.4); Platelet Count 172 10^3/uL (150-450)
[2020-12-18 06:44] LABS: Calcium 8.8 mg/dL (8.6-10.3); EGFR African American 93.4 (>60); EGFR Non-African American 77.2 (>60)
[2020-12-18] MEDS ORDERED: Aspirin EC 81 mg TAB.EC (enteric coated) PO SCH (09:00)
[2020-12-18] MEDS ORDERED: Vitamin THERAPEUTIC TAB PO SCH (09:00)
[2020-12-18] MEDS ORDERED: Timolol 0.5% OPTH.SOL BTL BOTH EYES SCH (09:00)
[2020-12-18] MEDS: Magnesium Hydroxide LIQ 30 ML UDC PO SCH (09:12)
[2020-12-18 11:32] VITALS: BP 136/78
== END 2020-12-18 15:48 | disposition home or self-care (01) ==
LOC: SSU 07:22 → OR 07:22
PROVIDERS: ADMIT Orthopaedic Surgery Adult Reconstructive Orthopaedic Surgery; ATTEND Orthopaedic Surgery Adult Reconstructive Orthopaedic Surgery